=== PATIENT | male | born 1940 | race Caucasian/White ===

== ENCOUNTER → 2016-07-17 | Outpatient (REF) | payer MEDICARE, OTHER ==
[~2016-07-17] MED LIST: ACET0.052 PO; ASPI81TA85 PO; ATOR1TAB21 PO; METO50TA2 PO; MULT1TAB8 PO; NITR4TASL SL; RAMI5CA PO; VITA10006 PO
[2016-07-17 11:47] LABS: CALCIUM LEVEL 8.8 MG/DL (8.8-10.2); CREATININE FOR GFR 2.61 MG/DL (0.70-1.30); GLOMERULAR FILTRATION RATE 25.6 (>42); MAGNESIUM LEVEL 1.8 MG/DL (1.8-2.4); POTASSIUM SERUM 5.1 MEQ/L (3.5-5.1)
== END ==
LOC: M SFHCPLAZ 08:55
PROVIDERS: ATTEND Internal Medicine
DX: N18.4 Chronic kidney disease, stage 4 (severe) (principal)

== ENCOUNTER → 2016-12-28 | Outpatient (REF) | payer MEDICARE, OTHER ==
[2016-12-28 11:45] LABS: MEAN CORPUSCULAR HEMOGLOBIN 32.7 pg (27.0-33.0); MEAN CORPUSCULAR HGB CONC 33.2 g/dl (32.0-36.5); MEAN CORPUSCULAR VOLUME 98.4 fl (80.0-96.0); RED CELL DISTRIBUTION WIDTH 13.1 % (11.5-14.5); WHITE BLOOD COUNT 3.6 K/mm3 (4.0-10.0)
[2016-12-28 12:07] LABS: ALBUMIN 3.6 GM/DL (3.2-5.2); ALBUMIN/GLOBULIN RATIO 1.33 (1.00-1.93); BILIRUBIN,TOTAL 0.5 MG/DL (0.2-1.0); CALCIUM LEVEL 8.6 MG/DL (8.8-10.2); CREATININE FOR GFR 2.7 MG/DL (0.70-1.30); GLOMERULAR FILTRATION RATE 24.6 (>42); POTASSIUM SERUM 4.6 MEQ/L (3.5-5.1); TOTAL PROTEIN 6.3 GM/DL (6.4-8.2)
== END ==
LOC: M SFHCPLAZ 08:44
PROVIDERS: ATTEND Internal Medicine
DX: N18.4 Chronic kidney disease, stage 4 (severe) (principal); D63.1 Anemia in chronic kidney disease; E78.00 Pure hypercholesterolemia, unspecified

== ENCOUNTER → 2017-06-02 | Outpatient (CLI) | payer MEDICARE, OTHER ==
[~2017-06-02] MED LIST changes: -METO50TA2 PO; +METO50TA7 PO
--- NOTE | 2017-06-03 05:41 | REP ---
RIGHT RIB SERIES: Four views of the right ribs are performed. I suspect nondisplaced fractures of the posterior right 9th and 10th ribs. No other definite rib abnormality is seen. An accompanying view of the chest demonstrates no acute infiltrate or pneumothorax. Heart is normal in size. There is calcification of the thoracic aorta. There are degenerative changes of the spine and shoulders. IMPRESSION: Suspect nondisplaced fractures of the right posterior 9th and 10th ribs. Signed by Derek Brewster MD 06/03/2017 08:56 A
--- NOTE | 2017-06-03 05:44 | REP ---
RIGHT KNEE SERIES: Five views of the right knee performed. There is no acute fracture or dislocation. There is mild patellofemoral compartment narrowing laterally with subchondral sclerosis and mild spurring. There is a small joint effusion. There is mild spurring of the superior pole of the patella. There is moderate lateral joint space narrowing with subchondral sclerosis and spurring. IMPRESSION: Degenerative changes and small joint effusion. No fracture or dislocation. Signed by Derek Brewster MD 06/03/2017 09:01 A
--- NOTE | 2017-06-03 05:45 | REP ---
RIGHT ANKLE SERIES: Four views of the right ankle are performed and demonstrate no fracture or dislocation. Ankle mortise is anatomic. There is lateral and medial mild degree of soft tissue swelling. IMPRESSION: No acute fracture or dislocation. Signed by Derek Brewster MD 06/03/2017 09:01 A
--- NOTE | 2017-06-03 05:46 | REP ---
RIGHT LOWER LEG, TWO VIEWS: AP and lateral views of right lower leg are performed and demonstrate no fracture, dislocation or intrinsic bone disease. IMPRESSION: No fracture or dislocation. Signed by Derek Brewster MD 06/03/2017 09:01 A
== END ==
LOC: M WUC 13:59
PROVIDERS: ATTEND Physician Assistant
DX: S20.211A Contusion of right front wall of thorax, initial encounter (principal); X58.XXXA Exposure to other specified factors, initial encounter; Y92.89 Other specified places as the place of occurrence of the external cause; Y93.89 Activity, other specified; Y99.8 Other external cause status; M25.461 Effusion, right knee

== ENCOUNTER → 2017-06-17 | Outpatient (REF) | payer MEDICARE, OTHER ==
[2017-06-17 11:41] LABS: MEAN CORPUSCULAR HGB CONC 32.3 g/dl (32.0-36.5); MEAN CORPUSCULAR VOLUME 99.2 fl (80.0-96.0); PLATELET COUNT, AUTOMATED 254 10^3/uL (150-450); RED CELL DISTRIBUTION WIDTH 13.2 % (11.5-14.5); WHITE BLOOD COUNT 5.1 10^3/uL (4.0-10.0)
[2017-06-17 12:40] LABS: ALBUMIN 3.9 GM/DL (3.2-5.2); ALBUMIN/GLOBULIN RATIO 1.3 (1.00-1.93); BILIRUBIN,TOTAL 0.6 MG/DL (0.2-1.0); CALCIUM LEVEL 9.4 MG/DL (8.8-10.2); CREATININE FOR GFR 3.21 MG/DL (0.70-1.30); GLOMERULAR FILTRATION RATE 20.1 (>42); POTASSIUM SERUM 5.1 MEQ/L (3.5-5.1); TOTAL PROTEIN 6.9 GM/DL (6.4-8.2)
== END ==
LOC: M SFHCPLAZ 10:05
PROVIDERS: ATTEND Internal Medicine
DX: N18.4 Chronic kidney disease, stage 4 (severe) (principal); D63.1 Anemia in chronic kidney disease

== ENCOUNTER → 2017-06-28 | Outpatient (CLI) | payer MEDICARE, OTHER ==
--- NOTE | 2017-06-28 12:57 | REP ---
URINARY TRACT SONOGRAPHY WITH RENAL ARTERY DOPPLER FLOW ASSESSMENT: HISTORY: Stage IV chronic kidney disease. MORPHOLOGIC FINDINGS: The urinary bladder manzo are somewhat trabeculated in appearance. There is evidence of prostate enlargement. Renal cortical echogenicity pattern is isoechoic to liver parenchyma, consistent with chronic medical renal disease. There is no evidence of hydronephrosis on either side. The right kidney measures 9.4 x 4.3 x 4.1 cm. Left renal dimensions are 10.2 x 4.4 x 5.3 cm. There is a 0.8 cm cyst in the upper pole of the left kidney and two possible left renal calculi 6 and 4 mm in the mid and lower pole, respectively. There is a 2.2 cm cyst in the lower pole of the right kidney and a possible 4 mm stone in its lower pole region. RENAL ARTERY DOPPLER FLOW ASSESSMENT: Peak systolic flow velocity in the abdominal aorta at the level of the main renal arteries is normal at 107 cm/s. Peak systolic flow velocity in the left main renal artery is 159 cm/s and that in the right 105 cm/s. Renal to aortic flow velocity ratios are therefore normal at 0.98 and 1.48, respectively on the right and left kidney. Resistive indices and acceleration times are measured in the intralobar arteries of both kidneys in the upper, mid, and lower pole, and these values are normal bilaterally. IMPRESSION: No renal artery Doppler flow assessment changes to suggest renal artery stenosis. Bilateral renal cysts. Possible nephrolithiasis. Increased renal cortical echogenicity pattern. No hydronephrosis. Signed by Arturo Hutton MD 06/28/2017 04:15 P
== END ==
LOC: M RAD 08:29
PROVIDERS: ATTEND Internal Medicine
DX: N28.1 Cyst of kidney, acquired (principal); N18.4 Chronic kidney disease, stage 4 (severe)

== ENCOUNTER 2018-03-24 16:58 | Emergency (ER) | payer MEDICARE, BC, OTHER ==
[2018-03-24] MEDS: LIDOCAINE 1% MDV 20ML VIAL SC ×2 (18:45)
[2018-03-24] MEDS: NORCO, ANEXSIA 5/325MG TABLET (HYDROcodone/ACETAMINOPHEN) PO ×2 (19:11)
== END 2018-03-24 21:08 | disposition home or self-care (01) ==
LOC: M ED 16:58
DX: S63.111A Subluxation of metacarpophalangeal joint of right thumb, initial encounter (principal); W19.XXXA Unspecified fall, initial encounter; Y92.410 Unspecified street and highway as the place of occurrence of the external cause
CPT/HCPCS: 73130

== ENCOUNTER → 2018-04-01 | Outpatient (REF) | payer MEDICARE, OTHER ==
[2018-04-01 10:20] LABS: HEMATOCRIT 32.8 % (42.0-52.0); HEMOGLOBIN 10.5 g/dl (13.5-17.5); MEAN CORPUSCULAR HEMOGLOBIN 32.4 pg (27.0-33.0); MEAN CORPUSCULAR VOLUME 101.2 fl (80.0-96.0); PLATELET COUNT, AUTOMATED 197 10^3/uL (150-450); RED BLOOD COUNT 3.24 10^6/uL (4.30-6.10); RED CELL DISTRIBUTION WIDTH 13.6 % (11.5-14.5); WHITE BLOOD COUNT 5.2 10^3/uL (4.0-10.0)
[2018-04-01 10:42] LABS: ALBUMIN 4.2 GM/DL (3.2-5.2); ALKALINE PHOSPHATASE 47 U/L (45-117); ALT/SGPT 37 U/L (12-78); ANION GAP 11 MEQ/L (8-16); AST/SGOT 26 U/L (7-37); BILIRUBIN,TOTAL 0.6 MG/DL (0.2-1.0); BLOOD UREA NITROGEN 79 MG/DL (7-18); CALCIUM LEVEL 10.4 MG/DL (8.8-10.2); CARBON DIOXIDE LEVEL 19 MEQ/L (21-32); CHLORIDE LEVEL 111 MEQ/L (98-107); CHOLESTEROL LEVEL 119 MG/DL (<200); CREATININE FOR GFR 4.19 MG/DL (0.70-1.30); GLOMERULAR FILTRATION RATE 14.8 (>42); GLUCOSE, FASTING 87 MG/DL (70-100); HDL CHOLESTEROL 70 MG/DL (>40); LDL CHOLESTEROL 41 MG/DL (<100); NON-HDL-C 49 MG/DL; POTASSIUM SERUM 5.4 MEQ/L (3.5-5.1); SODIUM LEVEL 141 MEQ/L (136-145); TRIGLYCERIDES LEVEL 39 MG/DL (<150)
[2018-04-01 10:52] LABS: PTH INTACT 49.4 PG/ML (18.5-88.0)
== END ==
LOC: M SFHCPLAZ 07:27
DX: N18.4 Chronic kidney disease, stage 4 (severe) (principal); D63.1 Anemia in chronic kidney disease; E78.00 Pure hypercholesterolemia, unspecified; H61.22 Impacted cerumen, left ear
CPT/HCPCS: 80053

== ENCOUNTER → 2018-04-28 | Outpatient (REF) | payer MEDICARE, OTHER ==
[2018-04-28 13:11] LABS: ANION GAP 7 MEQ/L (8-16); BLOOD UREA NITROGEN 58 MG/DL (7-18); CALCIUM LEVEL 10.1 MG/DL (8.8-10.2); CARBON DIOXIDE LEVEL 24 MEQ/L (21-32); CHLORIDE LEVEL 112 MEQ/L (98-107); CREATININE FOR GFR 4.22 MG/DL (0.70-1.30); GLOMERULAR FILTRATION RATE 14.7 (>42); GLUCOSE, FASTING 96 MG/DL (70-100); MAGNESIUM LEVEL 2.2 MG/DL (1.8-2.4); SODIUM LEVEL 143 MEQ/L (136-145)
== END ==
LOC: M SFHCPLAZ 08:26
DX: N18.4 Chronic kidney disease, stage 4 (severe) (principal)
CPT/HCPCS: 83735

== ENCOUNTER → 2018-05-14 | Outpatient (REF) | payer MEDICARE, OTHER ==
[2018-05-14 15:42] LABS: ANION GAP 10 MEQ/L (8-16); BLOOD UREA NITROGEN 48 MG/DL (7-18); CALCIUM LEVEL 9.7 MG/DL (8.8-10.2); CARBON DIOXIDE LEVEL 24 MEQ/L (21-32); CHLORIDE LEVEL 108 MEQ/L (98-107); CREATININE FOR GFR 3.39 MG/DL (0.70-1.30); GLOMERULAR FILTRATION RATE 18.9 (>42); GLUCOSE, FASTING 96 MG/DL (70-100); POTASSIUM SERUM 4.5 MEQ/L (3.5-5.1); SODIUM LEVEL 142 MEQ/L (136-145)
== END ==
LOC: M SFHCPLAZ 12:49
DX: N18.4 Chronic kidney disease, stage 4 (severe) (principal)
CPT/HCPCS: 80048

== ENCOUNTER → 2018-06-20 | Outpatient (REF) | payer MEDICARE, OTHER ==
[2018-06-20 18:26] LABS: ALBUMIN 4.1 GM/DL (3.2-5.2); ALBUMIN/GLOBULIN RATIO 1.41 (1.00-1.93); ALKALINE PHOSPHATASE 55 U/L (45-117); ALT/SGPT 34 U/L (12-78); ANION GAP 11 MEQ/L (8-16); AST/SGOT 31 U/L (7-37); BILIRUBIN,TOTAL 0.5 MG/DL (0.2-1.0); BLOOD UREA NITROGEN 60 MG/DL (7-18); CALCIUM LEVEL 10.5 MG/DL (8.8-10.2); CARBON DIOXIDE LEVEL 26 MEQ/L (21-32); CHLORIDE LEVEL 107 MEQ/L (98-107); CREATININE FOR GFR 4.13 MG/DL (0.70-1.30); GLUCOSE, FASTING 82 MG/DL (70-100); MAGNESIUM LEVEL 2.1 MG/DL (1.8-2.4); SODIUM LEVEL 144 MEQ/L (136-145)
[2018-06-20 18:34] LABS: PTH INTACT 60.6 PG/ML (18.5-88.0)
== END ==
LOC: M SFHCPLAZ 15:40
DX: N18.4 Chronic kidney disease, stage 4 (severe) (principal)
CPT/HCPCS: 83735

== ENCOUNTER → 2018-10-22 | Outpatient (REF) | payer MEDICARE, OTHER ==
[~2018-10-22] MED LIST changes: +RAMI1CAP24 PO; -RAMI5CA PO
[2018-10-22 12:18] LABS: HEMATOCRIT 35.1 % (42.0-52.0); HEMOGLOBIN 11.3 g/dl (13.5-17.5); MEAN CORPUSCULAR HEMOGLOBIN 32.7 pg (27.0-33.0); MEAN CORPUSCULAR HGB CONC 32.2 g/dl (32.0-36.5); MEAN CORPUSCULAR VOLUME 101.4 fl (80.0-96.0); PLATELET COUNT, AUTOMATED 167 10^3/uL (150-450); RED BLOOD COUNT 3.46 10^6/uL (4.30-6.10); WHITE BLOOD COUNT 5.8 10^3/uL (4.0-10.0)
[2018-10-22 12:51] LABS: ALBUMIN 3.9 GM/DL (3.2-5.2); BILIRUBIN,TOTAL 0.4 MG/DL (0.2-1.0); CALCIUM LEVEL 10.3 MG/DL (8.8-10.2); CHOLESTEROL RISK RATIO 2.293 (<5); CREATININE FOR GFR 4.02 MG/DL (0.70-1.30); GLOMERULAR FILTRATION RATE 15.5 (>42); MAGNESIUM LEVEL 1.8 MG/DL (1.8-2.4); POTASSIUM SERUM 4.5 MEQ/L (3.5-5.1); TOTAL PROTEIN 6.3 GM/DL (6.4-8.2)
[2018-10-22 13:02] LABS: PTH INTACT 62.4 PG/ML (18.5-88.0)
== END ==
LOC: M SFHCPLAZ 10:46
PROVIDERS: ATTEND Internal Medicine
DX: N18.4 Chronic kidney disease, stage 4 (severe) (principal); E78.00 Pure hypercholesterolemia, unspecified; D63.1 Anemia in chronic kidney disease

== ENCOUNTER → 2018-11-04 | Outpatient (CLI) | payer MEDICARE, BC, OTHER ==
--- NOTE | 2018-11-10 01:21 | HOLTMON ---
[facility] Test Date: 2018-11-04 Pat Name: JUAN SMITH Department: Room: - Gender: Packing Room Supervisor: Samantha Quintana/BHAVIN TEIXEIRA : 1940 Requested By: Tayo Lay Order Number: [id number] Reading MD: Cheko Alvarado Interpretive Statements The patient had a 48 hour Holter monitor for a complaint of "syncope". Underlying rhythm was sinus. There were two hours of artifact. Heart rate ranged between 38 and 106 beats per minute; average heart rate was 56 beats per minute. No significant pauses were recorded. There was no ventricular ectopy. 2,076 supraventricular beats recorded with 63% singlets. The longest supraventricular run was 9 beats. No diary events were recorded by patient. Lowest heart rate was at 0553, presumably during sleep. Atrial fibrillation was noted by the computer in the report, but on review of the diary the rhythm was sinus with supraventricular ectopy. There is no obvious cause for syncope shown by this study, although baseline heart rate is bradycardic and there is frequent supraventricular ectopy. If further concern exists for arrhythmia, consider an event recorder, or implantable loop recorder. Electronically Signed On 11-10-2018 1:21:23 EDT by Cheko Alvarado
== END ==
LOC: M EKG 11:24
PROVIDERS: ATTEND Internal Medicine
DX: Z87.898 Personal history of other specified conditions (principal)

== ENCOUNTER → 2019-01-29 | Outpatient (REF) | payer MEDICARE, OTHER ==
[2019-01-29 12:14] LABS: ALBUMIN 3.8 GM/DL (3.2-5.2); BILIRUBIN,TOTAL 0.4 MG/DL (0.2-1.0); CALCIUM LEVEL 11.5 MG/DL (8.8-10.2); CREATININE FOR GFR 4.53 MG/DL (0.70-1.30); GLOMERULAR FILTRATION RATE 13.5 (>42); POTASSIUM SERUM 3.9 MEQ/L (3.5-5.1); PTH INTACT 66.1 PG/ML (18.5-88.0); TOTAL PROTEIN 6.5 GM/DL (6.4-8.2)
== END ==
LOC: M SFHCPLAZ 10:50
PROVIDERS: ATTEND Internal Medicine
DX: N18.4 Chronic kidney disease, stage 4 (severe) (principal)

== ENCOUNTER → 2019-03-05 | Outpatient (REF) | payer MEDICARE, OTHER ==
[~2019-03-05] MED LIST changes: +ACET-1146 PO; -ACET0.052 PO
[2019-03-05 14:06] LABS: PERCENT SATURATION 22.7 % (19.7-50.0)
== END ==
LOC: M LAB REF 13:18
PROVIDERS: ATTEND Internal Medicine Nephrology
DX: D50.9 Iron deficiency anemia, unspecified (principal)

== ENCOUNTER → 2019-03-12 | Outpatient (CLI) | payer MEDICARE, BC, OTHER ==
[~2019-03-12] MED LIST changes: -ACET-1146 PO; +ACET0.052 PO
--- NOTE | 2019-03-12 13:58 | REP ---
Renal ultrasound: The right kidney is atrophic measuring 8.7 x 4.3 x 4.4 cm. The left kidney is normal size measuring temporal and a 5.9 x 5.4 cm. Renal cortical echogenicity is normal bilaterally. There is no hydronephrosis on the right on the left. No renal calculi are identified. There are no solid renal masses. There is a right renal lower pole Bosniak type 1, 2.2 cm cyst. There is a left renal mid pole Bosniak type 1, 0.6 cm cyst. Impression: There is a Bosniak type 1 cyst in each kidney. The right kidney is atrophic. Otherwise, negative renal ultrasound. Bladder: With color Doppler assessment. No ureteral jets are identified. However, there is no hydronephrosis. This may be from dehydration. There are only two transverse views of the bladder. The bladder wall cannot be assessed. Electronically Signed by Derek Barney MD 03/12/2019 01:50 P
== END ==
LOC: M RAD 09:48
PROVIDERS: ATTEND Internal Medicine Nephrology
DX: N18.5 Chronic kidney disease, stage 5 (principal)

== ENCOUNTER → 2019-08-25 | Outpatient (REF) | payer MEDICARE, OTHER ==
[~2019-08-25] MED LIST changes: +ACET-1146 PO; -ACET0.052 PO
== END ==
LOC: M LAB REF 13:18
PROVIDERS: ATTEND Internal Medicine Nephrology
DX: E03.9 Hypothyroidism, unspecified (principal)

== ENCOUNTER → 2019-11-18 | Outpatient (REF) | payer MEDICARE, OTHER ==
[2019-11-18 14:24] LABS: CHOLESTEROL RISK RATIO 2.114 (<5); THYROID STIMULATING HORMONE 1.66 uIU/ML (0.358-3.740)
== END ==
LOC: M PLALAB 10:30
PROVIDERS: ATTEND Internal Medicine
DX: E78.00 Pure hypercholesterolemia, unspecified (principal); R68.89 Other general symptoms and signs

== ENCOUNTER → 2020-04-06 | Outpatient (CLI) | payer MEDICARE, OTHER ==
[~2020-04-06] MED LIST changes: -ASPI81TA85 PO; +ASPI81TA86 PO
[2020-04-06 16:47] LABS: ALBUMIN 3.7 GM/DL (3.2-5.2); BILIRUBIN,TOTAL 0.4 MG/DL (0.2-1.0); CREATININE FOR GFR 3.81 MG/DL (0.70-1.30); GLOMERULAR FILTRATION RATE 16.4 (>42); POTASSIUM SERUM 5.1 MEQ/L (3.5-5.1); TOTAL PROTEIN 6.3 GM/DL (6.4-8.2)
== END ==
LOC: M PLALAB 14:09
PROVIDERS: ATTEND Internal Medicine
DX: N18.4 Chronic kidney disease, stage 4 (severe) (principal); I12.9 Hypertensive chronic kidney disease with stage 1 through stage 4 chronic kidney disease, or unspecified chronic kidney disease; E78.00 Pure hypercholesterolemia, unspecified; I25.10 Atherosclerotic heart disease of native coronary artery without angina pectoris

== ENCOUNTER → 2020-06-01 | Outpatient (CLI) | payer MEDICARE, BC, OTHER ==
--- NOTE | 2020-06-01 13:09 | REP ---
INDICATION: EDEMA, THROMBOSIS COMPARISON: None. TECHNIQUE: Real time compression and duplex Doppler interrogation of the left lower extremity deep venous system is performed. FINDINGS: The left common femoral, superficial femoral and popliteal veins are fully compressible with transducer pressure and demonstrate normal spontaneous and phasic flow, without evidence of deep venous thrombosis. Two complex popliteal cysts are noted. These measure 5.1 x 1.6 x 2.8 cm and 8.4 X 0.7 x 1.6 cm. IMPRESSION: No evidence of deep venous thrombosis of the left lower extremity femoral popliteal venous system. Two complex popliteal cysts are noted. These measure 5.1 x 1.6 x 2.8 cm and 8.4 X 0.7 x 1.6 cm. <Electronically signed by Derek Brewster > 06/01/20 [id number]
== END ==
LOC: M RAD 12:16
PROVIDERS: ATTEND Internal Medicine Nephrology
DX: M71.22 Synovial cyst of popliteal space [Baker], left knee (principal)

== ENCOUNTER → 2020-10-03 | Outpatient (REF) | payer MEDICARE, OTHER ==
[2020-10-03 18:34] LABS: ALBUMIN 3.7 GM/DL (3.2-5.2); BILIRUBIN,TOTAL 0.4 MG/DL (0.2-1.0); CHOLESTEROL RISK RATIO 1.95 (<5); CREATININE FOR GFR 4.27 MG/DL (0.70-1.30); GLOMERULAR FILTRATION RATE 14.4 (>42); POTASSIUM SERUM 4.9 MEQ/L (3.5-5.1); TOTAL PROTEIN 6.3 GM/DL (6.4-8.2)
== END ==
LOC: M SFHCPLAZ 14:18
PROVIDERS: ATTEND Internal Medicine
DX: N18.4 Chronic kidney disease, stage 4 (severe) (principal); E78.00 Pure hypercholesterolemia, unspecified

== ENCOUNTER → 2020-12-26 | Outpatient (REF) | payer MEDICARE, OTHER ==
[2020-12-26 17:53] LABS: PERCENT SATURATION 22.6 % (19.7-50.0)
== END ==
LOC: M LAB REF 17:00
PROVIDERS: ATTEND Internal Medicine Nephrology
DX: D50.9 Iron deficiency anemia, unspecified (principal)

== ENCOUNTER 2021-07-31 10:55 | Inpatient (IN) | payer MEDICARE, BC, OTHER ==
[~2021-07-31] VITALS: Ht 185.4 cm; Wt 70.5 kg
[2021-07-31] VITALS (7 sets, daily range): BP systolic 83–130; BP diastolic 54–99
[2021-07-31] MEDS ORDERED: NS 1,000 ML IV ONE ×3 (11:05→11:15)
[2021-07-31] MEDS ORDERED: LIDOCAINE 2% 5ML JELLY UROJET TOP ONE (11:05)
[2021-07-31] MEDS ORDERED: PIPERACILLIN/TAZOBACTAM SOD 4.5 GM in D5W MINI-BAG PLUS 50 ML IV ONE (11:15)
[2021-07-31] MEDS ORDERED: CALCIUM GLUCONATE 1,000 MG in D5W MINI-BAG PLUS 100 ML IV ONE ×3 (11:20→18:00)
[2021-07-31] MEDS ORDERED: HumuLIN R (REGULAR) INSULIN (NovoLIN R) **100U/ML** PER UNIT IV ONE ×2 (11:20→14:00)
[2021-07-31] MEDS ORDERED: DEXTROSE 50% 50 ML SYRINGE IV STA ×2 (11:20→13:57)
[2021-07-31] MEDS ORDERED: SODIUM BICARBONATE 8.4% INJ 50 ML SYRINGE IV STA ×2 (11:21→17:51)
[2021-07-31] MEDS ORDERED: ALBUTEROL SULFATE 2.5 MG/0.5 ML INH NEB SOLN INH ONE (11:25)
[2021-07-31] MEDS ORDERED: IPRATROPIUM 0.5MG/ALBUTEROL 2.5MG INH SOL UD 3ML (DUONEB) NEB ONE (11:25)
[2021-07-31] MEDS ORDERED: SOD POLYSTYRENE SULFONATE SUSP 15 GM/60 ML UD PO ONE (11:25)
[2021-07-31 11:35] LABS: BASO % 0.1 % (0.0-1.0); HEMATOCRIT 30.9 % (42.0-52.0); HEMOGLOBIN 9.6 g/dl (13.5-17.5); LYMPH # 0.3 10^3/uL (1.5-5.0); LYMPH % 1.9 % (24.0-44.0); MEAN CORPUSCULAR HEMOGLOBIN 31.7 pg (27.0-33.0); MEAN CORPUSCULAR HGB CONC 31.1 g/dl (32.0-36.5); MONO # 0.5 10^3/uL (0.0-0.8); NEUTROPHILS # 12.6 10^3/uL (1.5-8.5); NEUTROPHILS % 93.5 % (36.0-66.0); PLATELET COUNT, AUTOMATED 114 10^3/uL (150-450); RED BLOOD COUNT 3.03 10^6/uL (4.30-6.10); WHITE BLOOD COUNT 13.5 10^3/uL (4.0-10.0)
[2021-07-31 11:45] LABS: INR 1.23; PROTHROMBIN TIME 15.9 SECONDS (12.7-14.5)
[2021-07-31 11:46] LABS: PARTIAL THROMBOPLASTIN TIME 37.4 SECONDS (25.9-37.0)
[2021-07-31 11:57] LABS: C REACTIVE PROTEIN QUANTITATIV 2.42 MG/DL (0.00-0.30)
[2021-07-31 12:22] LABS: CK-MB VALUE MASS 174.9 NG/ML (<3.6); MB/CK RELATIVE INDEX 4.08 (< OR =4)
[2021-07-31 12:35] LABS: AMPHETAMINES LEVEL URINE NEGATIVE (NEGATIVE); BARBITURATES URINE NEGATIVE (NEGATIVE); BENZODIAZEPINES URINE NEGATIVE (NEGATIVE); CANNABINOIDS URINE NEGATIVE (NEGATIVE); COCAINE METABOLITE URINE NEGATIVE (NEGATIVE); METHADONE URINE NEGATIVE (NEGATIVE); OPIATES URINE NEGATIVE (NEGATIVE); PHENCYCLIDINE URINE NEGATIVE (NEGATIVE)
[2021-07-31 12:56] LABS: ACETAMINOPHEN LEVEL < 2.0 UG/ML (10.0-30.0); ALBUMIN 3.4 GM/DL (3.2-5.2); ALT/SGPT 278 U/L (12-78); BILIRUBIN,DIRECT 0.1 MG/DL (0.0-0.2); BILIRUBIN,TOTAL 0.3 MG/DL (0.2-1.0); BLOOD UREA NITROGEN 162 MG/DL (7-18); CALCIUM LEVEL 9.3 MG/DL (8.8-10.2); CARBON DIOXIDE LEVEL 8 MEQ/L (21-32); CHLORIDE LEVEL 125 MEQ/L (98-107); CREATININE FOR GFR 7.74 MG/DL (0.70-1.30); ETHYL ALCOHOL (ETHANOL) 0.003 % (0.000-0.010); GLOMERULAR FILTRATION RATE 7.2 (>35); GLUCOSE, FASTING 98 MG/DL (70-100); POTASSIUM SERUM 8.3 MEQ/L (3.5-5.1); SALICYLATE LEVEL < 1.7 MG/DL (5.0-30.0); SODIUM LEVEL 144 MEQ/L (136-145); TOTAL PROTEIN 6.5 GM/DL (6.4-8.2)
[2021-07-31] MEDS ORDERED: FURO20TA2 PO (13:04)
[2021-07-31] MEDS ORDERED: EPOE2000 SC (13:04)
[2021-07-31] MEDS ORDERED: ASPI81TA26 PO (13:04)
[2021-07-31] MEDS ORDERED: CINA30TA5 PO (13:04)
[2021-07-31] MEDS ORDERED: SODI650T PO (13:04)
[2021-07-31] MEDS ORDERED: HOME MED LIST COMPLETE! XX SCH (13:05)
[2021-07-31] MEDS ORDERED: COMMENTS (13:05)
[2021-07-31] MEDS ORDERED: SODIUM BICARBONATE 150 MEQ in D5W 1,000 ML IV SCH (13:10)
[2021-07-31 13:18] LABS: CALCIUM LEVEL 8.4 MG/DL (8.8-10.2); CREATININE FOR GFR 6.94 MG/DL (0.70-1.30); GLOMERULAR FILTRATION RATE 8.2 (>35); POTASSIUM SERUM 6.9 MEQ/L (3.5-5.1)
[2021-07-31 15:52] LABS: CALCIUM LEVEL 8.7 MG/DL (8.8-10.2); CREATININE FOR GFR 7.19 MG/DL (0.70-1.30); GLOMERULAR FILTRATION RATE 7.9 (>35); POTASSIUM SERUM 7.1 MEQ/L (3.5-5.1)
[2021-07-31] MEDS ORDERED: GLUCOSE 4GM CHEW TABLET PO PRN (16:25)
[2021-07-31] MEDS ORDERED: DEXTROSE 50% 50 ML SYRINGE IV PRN (16:25)
[2021-07-31] MEDS ORDERED: GLUCAGON INJ 1MG VIAL SC PRN (16:25)
[2021-07-31] MEDS: PIPERACILLIN/TAZOBACTAM SOD 2.25 GM in D5W MINI-BAG PLUS 50 ML IV SCH (18:21)
[2021-07-31 18:29] LABS: VENOUS BASE EXCESS -21.8 (-2.0-2.0); VENOUS HCO3 6.9 MEQ/L (23.0-27.0); VENOUS O2 SATURATION 97.9 % (60.0-80.0); VENOUS PARTIAL PRESSURE CO2 25.3 mmHg (38.0-50.0); VENOUS PARTIAL PRESSURE O2 132.5 mmHg (30.0-50.0); VENOUS PH 7.055 UNITS (7.330-7.430); VENOUS STANDARD HCO3 8.1 MEQ/L; VENOUS TOTAL CO2 7.7 MEQ/L (24.0-28.0)
[2021-07-31 18:34] LABS: HEMATOCRIT 25.2 % (42.0-52.0); HEMOGLOBIN 8.1 g/dl (13.5-17.5); MEAN CORPUSCULAR HEMOGLOBIN 32.3 pg (27.0-33.0); MEAN CORPUSCULAR HGB CONC 32.1 g/dl (32.0-36.5); MEAN CORPUSCULAR VOLUME 100.4 fl (80.0-96.0); RED BLOOD COUNT 2.51 10^6/uL (4.30-6.10); WHITE BLOOD COUNT 12.5 10^3/uL (4.0-10.0)
[2021-07-31 18:43] LABS: INR 1.24
[2021-07-31 18:44] LABS: PARTIAL THROMBOPLASTIN TIME 39.6 SECONDS (25.9-37.0)
[2021-07-31 18:57] LABS: PLATELET COUNT, AUTOMATED 94 10^3/uL (150-450)
[2021-07-31 19:12] LABS: CALCIUM LEVEL 8.8 MG/DL (8.8-10.2); CREATININE FOR GFR 7.27 MG/DL (0.70-1.30); GLOMERULAR FILTRATION RATE 7.8 (>35); MAGNESIUM LEVEL 2.3 MG/DL (1.8-2.4); PHOSPHORUS LEVEL 6.1 MG/DL (2.5-4.9)
[2021-08-01] VITALS (33 sets, daily range): BP systolic 134–170; BP diastolic 62–132
[2021-08-01] MEDS: PIPERACILLIN/TAZOBACTAM SOD 2.25 GM in D5W MINI-BAG PLUS 50 ML IV SCH ×2 (02:09→10:21)
[2021-08-01 06:11] LABS: BASO % 0.1 % (0.0-1.0); EOS % 0.1 % (0.0-3.0); HEMATOCRIT 23.3 % (42.0-52.0); HEMOGLOBIN 7.9 g/dl (13.5-17.5); LYMPH # 0.6 10^3/uL (1.5-5.0); LYMPH % 5.3 % (24.0-44.0); MEAN CORPUSCULAR HEMOGLOBIN 32.2 pg (27.0-33.0); MEAN CORPUSCULAR HGB CONC 33.9 g/dl (32.0-36.5); MEAN CORPUSCULAR VOLUME 95.1 fl (80.0-96.0); MONO # 0.6 10^3/uL (0.0-0.8); MONO % 4.9 % (2.0-8.0); NEUTROPHILS # 10.2 10^3/uL (1.5-8.5); RED BLOOD COUNT 2.45 10^6/uL (4.30-6.10); WHITE BLOOD COUNT 11.5 10^3/uL (4.0-10.0)
[2021-08-01 06:12] LABS: PLATELET COUNT, AUTOMATED 98 10^3/uL (150-450)
[2021-08-01 06:59] LABS: CALCIUM LEVEL 9.2 MG/DL (8.8-10.2); CREATININE FOR GFR 4.76 MG/DL (0.70-1.30); GLOMERULAR FILTRATION RATE 12.6 (>35); MAGNESIUM LEVEL 2.1 MG/DL (1.8-2.4); POTASSIUM SERUM 5.3 MEQ/L (3.5-5.1)
[2021-08-01] MEDS ORDERED: SODIUM CHLORIDE 0.9% INJ 10 ML SYR IV PRN (10:10)
[2021-08-01] MEDS: D5W/0.45% SODIUM CHLORIDE 1,000 ML IV SCH (10:21)
[2021-08-01 11:15] LABS: ABG BASE EXCESS -5.9 (-2.0-2.0); ABG HCO3 16.8 MEQ/L (22.0-26.0); ABG O2 SATURATION 97.8 % (95.0-99.0); ABG PARTIAL PRESSURE CO2 23.7 mmHg (35.0-45.0); ABG PARTIAL PRESSURE O2 110.2 mmHg (75.0-100.0); ABG STANDARD HCO3 19.6 MEQ/L (22.0-26.0); ABG TOTAL CO2 17.5 MEQ/L (23.0-31.0); ABG pH (ARTERIAL) 7.468 UNITS (7.350-7.450)
[2021-08-01 14:00] LABS: HEMOGLOBIN 7.8 g/dl (13.5-17.5); MEAN CORPUSCULAR HEMOGLOBIN 32.2 pg (27.0-33.0); MEAN CORPUSCULAR HGB CONC 33.9 g/dl (32.0-36.5); RED BLOOD COUNT 2.42 10^6/uL (4.30-6.10); WHITE BLOOD COUNT 9.6 10^3/uL (4.0-10.0)
[2021-08-01 14:09] LABS: INR 1.13; PROTHROMBIN TIME 14.9 SECONDS (12.7-14.5)
[2021-08-01 14:10] LABS: PARTIAL THROMBOPLASTIN TIME 40.2 SECONDS (25.9-37.0); PLATELET COUNT, AUTOMATED 92 10^3/uL (150-450)
[2021-08-01] MEDS: PIPERACILLIN/TAZOBACTAM SOD 4.5 GM in D5W MINI-BAG PLUS 50 ML IV SCH ×2 (14:15→22:36)
[2021-08-01 14:23] LABS: ALBUMIN 2.7 GM/DL (3.2-5.2); CALCIUM LEVEL 9.3 MG/DL (8.8-10.2); CREATININE FOR GFR 3.53 MG/DL (0.70-1.30); GLOMERULAR FILTRATION RATE 17.9 (>35); PHOSPHORUS LEVEL 3.6 MG/DL (2.5-4.9); POTASSIUM SERUM 4.7 MEQ/L (3.5-5.1)
[2021-08-01] MEDS ORDERED: ASPIRIN 81 MG CHEW TABLET PO STA (23:49)
[2021-08-02] VITALS (24 sets, daily range): BP systolic 132–172; BP diastolic 63–93
[2021-08-02 00:55] LABS: CK-MB VALUE MASS 63.5 NG/ML (<3.6); MB/CK RELATIVE INDEX 1.94 (< OR =4)
[2021-08-02] MEDS: ATORVASTATIN 20 MG TAB PO SCH ×2 (01:49→09:11)
[2021-08-02] MEDS: D5W/0.45% SODIUM CHLORIDE 1,000 ML IV SCH ×2 (01:50→18:46)
[2021-08-02] MEDS: METOPROLOL TART 25 MG TABLET PO SCH ×2 (01:50→09:00)
[2021-08-02 05:38] LABS: BASO % 0.1 % (0.0-1.0); EOS % 0.4 % (0.0-3.0); HEMATOCRIT 23.9 % (42.0-52.0); LYMPH # 0.7 10^3/uL (1.5-5.0); LYMPH % 8.9 % (24.0-44.0); MEAN CORPUSCULAR HEMOGLOBIN 32.5 pg (27.0-33.0); MEAN CORPUSCULAR HGB CONC 33.5 g/dl (32.0-36.5); MEAN CORPUSCULAR VOLUME 97.2 fl (80.0-96.0); MONO # 0.6 10^3/uL (0.0-0.8); MONO % 7.8 % (2.0-8.0); NEUTROPHILS # 6.2 10^3/uL (1.5-8.5); NEUTROPHILS % 82.3 % (36.0-66.0); RED BLOOD COUNT 2.46 10^6/uL (4.30-6.10); WHITE BLOOD COUNT 7.6 10^3/uL (4.0-10.0)
[2021-08-02 05:43] LABS: PLATELET COUNT, AUTOMATED 97 10^3/uL (150-450)
[2021-08-02 06:02] LABS: CALCIUM LEVEL 8.7 MG/DL (8.8-10.2); CREATININE FOR GFR 4.42 MG/DL (0.70-1.30); GLOMERULAR FILTRATION RATE 13.8 (>35)
[2021-08-02 06:20] LABS: CK-MB VALUE MASS 51.3 NG/ML (<3.6); MB/CK RELATIVE INDEX 1.87 (< OR =4)
[2021-08-02] MEDS ORDERED: SODIUM CHLORIDE 0.9% 1000ML IV PRN (07:05)
[2021-08-02] MEDS ORDERED: LIDOCAINE 1% MDV 20ML VIAL As Ordered ONE (07:15)
[2021-08-02] MEDS: PIPERACILLIN/TAZOBACTAM SOD 4.5 GM in D5W MINI-BAG PLUS 50 ML IV SCH ×3 (07:41→22:45)
[2021-08-02] MEDS ORDERED: METOPROLOL TART 25 MG TABLET PO SCH (09:00)
[2021-08-02] MEDS ORDERED: ATORVASTATIN 20 MG TAB PO SCH (09:00)
[2021-08-02] MEDS: ASPIRIN 81MG ENTERIC TABLET PO SCH (09:11)
[2021-08-02 13:07] LABS: ABG HCO3 19.1 MEQ/L (22.0-26.0); ABG PARTIAL PRESSURE CO2 31.1 mmHg (35.0-45.0); ABG PARTIAL PRESSURE O2 97.3 mmHg (75.0-100.0); ABG STANDARD HCO3 20.3 MEQ/L (22.0-26.0); ABG pH (ARTERIAL) 7.405 UNITS (7.350-7.450)
[2021-08-02 13:21] LABS: EOS # 0.1 10^3/uL (0.0-0.5); EOS % 0.8 % (0.0-3.0); HEMATOCRIT 24.1 % (42.0-52.0); HEMOGLOBIN 7.8 g/dl (13.5-17.5); LYMPH # 0.6 10^3/uL (1.5-5.0); LYMPH % 8.8 % (24.0-44.0); MEAN CORPUSCULAR HEMOGLOBIN 31.8 pg (27.0-33.0); MEAN CORPUSCULAR HGB CONC 32.4 g/dl (32.0-36.5); MEAN CORPUSCULAR VOLUME 98.4 fl (80.0-96.0); MONO # 0.6 10^3/uL (0.0-0.8); MONO % 8.8 % (2.0-8.0); NEUTROPHILS # 5.8 10^3/uL (1.5-8.5); NEUTROPHILS % 81.3 % (36.0-66.0); RED BLOOD COUNT 2.45 10^6/uL (4.30-6.10); WHITE BLOOD COUNT 7.1 10^3/uL (4.0-10.0)
[2021-08-02 13:28] LABS: PLATELET COUNT, AUTOMATED 89 10^3/uL (150-450)
[2021-08-02 13:55] LABS: MB/CK RELATIVE INDEX 2.05 (< OR =4)
[2021-08-02 14:26] LABS: ALBUMIN 2.3 GM/DL (3.2-5.2); BILIRUBIN,TOTAL 0.6 MG/DL (0.2-1.0); CALCIUM LEVEL 8.6 MG/DL (8.8-10.2); CREATININE FOR GFR 4.6 MG/DL (0.70-1.30); GLOMERULAR FILTRATION RATE 13.2 (>35); POTASSIUM SERUM 4.9 MEQ/L (3.5-5.1); TOTAL PROTEIN 4.9 GM/DL (6.4-8.2)
[2021-08-03] VITALS (28 sets, daily range): BP systolic 110–167; BP diastolic 56–80
[2021-08-03] MEDS: PIPERACILLIN/TAZOBACTAM SOD 4.5 GM in D5W MINI-BAG PLUS 50 ML IV SCH ×3 (06:21→18:39)
[2021-08-03] MEDS ORDERED: SODIUM CHLORIDE 0.9% 1000ML IV PRN (07:55)
[2021-08-03 08:11] LABS: BASO % 0.2 % (0.0-1.0); EOS # 0.1 10^3/uL (0.0-0.5); EOS % 2.2 % (0.0-3.0); HEMATOCRIT 23.8 % (42.0-52.0); HEMOGLOBIN 7.6 g/dl (13.5-17.5); LYMPH # 0.8 10^3/uL (1.5-5.0); LYMPH % 15.4 % (24.0-44.0); MEAN CORPUSCULAR HEMOGLOBIN 31.5 pg (27.0-33.0); MEAN CORPUSCULAR HGB CONC 31.9 g/dl (32.0-36.5); MEAN CORPUSCULAR VOLUME 98.8 fl (80.0-96.0); MONO # 0.6 10^3/uL (0.0-0.8); NEUTROPHILS # 3.8 10^3/uL (1.5-8.5); NEUTROPHILS % 70.8 % (36.0-66.0); RED BLOOD COUNT 2.41 10^6/uL (4.30-6.10); WHITE BLOOD COUNT 5.4 10^3/uL (4.0-10.0)
[2021-08-03 08:13] LABS: PLATELET COUNT, AUTOMATED 90 10^3/uL (150-450)
[2021-08-03 08:30] LABS: CALCIUM LEVEL 8.1 MG/DL (8.8-10.2); CREATININE FOR GFR 5.19 MG/DL (0.70-1.30); GLOMERULAR FILTRATION RATE 11.4 (>35); POTASSIUM SERUM 4.9 MEQ/L (3.5-5.1)
[2021-08-03] MEDS: ATORVASTATIN 20 MG TAB PO SCH (09:23)
[2021-08-03] MEDS: ASPIRIN 81MG ENTERIC TABLET PO SCH (09:23)
[2021-08-03] MEDS: D5W 1,000 ML IV SCH (09:26)
[2021-08-03 13:57] LABS: HEPATITIS B CORE ANTIBODY IGM NEGATIVE (NEGATIVE); HEPATITIS B SURFACE ANTIBODY NEGATIVE (POSITIVE); HEPATITIS B SURFACE ANTIGEN NEGATIVE (NEGATIVE); HEPATITIS C VIRUS ABY INDEX < 0.0 INDEX (<0.8)
[2021-08-03 18:37] LABS: BASO % 0.2 % (0.0-1.0); EOS # 0.1 10^3/uL (0.0-0.5); EOS % 2.4 % (0.0-3.0); HEMATOCRIT 29.8 % (42.0-52.0); HEMOGLOBIN 9.9 g/dl (13.5-17.5); LYMPH % 16.6 % (24.0-44.0); MEAN CORPUSCULAR HGB CONC 33.2 g/dl (32.0-36.5); MEAN CORPUSCULAR VOLUME 96.4 fl (80.0-96.0); MONO # 0.5 10^3/uL (0.0-0.8); MONO % 9.2 % (2.0-8.0); NEUTROPHILS # 4.1 10^3/uL (1.5-8.5); NEUTROPHILS % 70.9 % (36.0-66.0); RED BLOOD COUNT 3.09 10^6/uL (4.30-6.10); WHITE BLOOD COUNT 5.8 10^3/uL (4.0-10.0)
[2021-08-03 18:42] LABS: PLATELET COUNT, AUTOMATED 85 10^3/uL (150-450)
[2021-08-04] VITALS (13 sets, daily range): BP systolic 109–142; BP diastolic 57–95
[2021-08-04] MEDS: D5W 1,000 ML IV SCH (02:00)
[2021-08-04] MEDS: PIPERACILLIN/TAZOBACTAM SOD 4.5 GM in D5W MINI-BAG PLUS 50 ML IV SCH ×2 (05:04→18:04)
[2021-08-04 05:47] LABS: BASO % 0.2 % (0.0-1.0); EOS # 0.2 10^3/uL (0.0-0.5); EOS % 3.2 % (0.0-3.0); HEMATOCRIT 28.4 % (42.0-52.0); HEMOGLOBIN 9.2 g/dl (13.5-17.5); LYMPH # 0.8 10^3/uL (1.5-5.0); LYMPH % 13.6 % (24.0-44.0); MEAN CORPUSCULAR HEMOGLOBIN 31.5 pg (27.0-33.0); MEAN CORPUSCULAR HGB CONC 32.4 g/dl (32.0-36.5); MEAN CORPUSCULAR VOLUME 97.3 fl (80.0-96.0); MONO # 0.6 10^3/uL (0.0-0.8); MONO % 10.2 % (2.0-8.0); NEUTROPHILS # 4.5 10^3/uL (1.5-8.5); NEUTROPHILS % 72.3 % (36.0-66.0); RED BLOOD COUNT 2.92 10^6/uL (4.30-6.10); WHITE BLOOD COUNT 6.2 10^3/uL (4.0-10.0)
[2021-08-04 05:52] LABS: PLATELET COUNT, AUTOMATED 85 10^3/uL (150-450)
[2021-08-04 06:07] LABS: CREATININE FOR GFR 3.71 MG/DL (0.70-1.30); GLOMERULAR FILTRATION RATE 16.9 (>35)
[2021-08-04] MEDS: ATORVASTATIN 20 MG TAB PO SCH (09:05)
[2021-08-04] MEDS: ASPIRIN 81MG ENTERIC TABLET PO SCH (09:05)
[2021-08-05 00:06] VITALS: BP 136/78
[2021-08-05 04:00] VITALS: BP 155/74
[2021-08-05 05:45] LABS: BASO % 0.1 % (0.0-1.0); EOS # 0.2 10^3/uL (0.0-0.5); EOS % 2.8 % (0.0-3.0); HEMATOCRIT 30.8 % (42.0-52.0); LYMPH % 12.4 % (24.0-44.0); MEAN CORPUSCULAR HEMOGLOBIN 31.6 pg (27.0-33.0); MEAN CORPUSCULAR HGB CONC 32.5 g/dl (32.0-36.5); MEAN CORPUSCULAR VOLUME 97.5 fl (80.0-96.0); MONO # 0.6 10^3/uL (0.0-0.8); MONO % 7.9 % (2.0-8.0); RED BLOOD COUNT 3.16 10^6/uL (4.30-6.10); WHITE BLOOD COUNT 7.9 10^3/uL (4.0-10.0)
[2021-08-05 05:46] LABS: PLATELET COUNT, AUTOMATED 97 10^3/uL (150-450)
[2021-08-05] MEDS: PIPERACILLIN/TAZOBACTAM SOD 4.5 GM in D5W MINI-BAG PLUS 50 ML IV SCH ×2 (05:55→18:07)
[2021-08-05 06:03] LABS: CALCIUM LEVEL 8.4 MG/DL (8.8-10.2); CREATININE FOR GFR 4.72 MG/DL (0.70-1.30); GLOMERULAR FILTRATION RATE 12.8 (>35); POTASSIUM SERUM 4.1 MEQ/L (3.5-5.1)
[2021-08-05 07:12] VITALS: BP 133/71
[2021-08-05] MEDS ORDERED: SODIUM CHLORIDE 0.9% 1000ML IV PRN (08:05)
[2021-08-05] MEDS ORDERED: LIDOCAINE 1% SDV 5ML VIAL SC PRN (08:05)
[2021-08-05] MEDS: ASPIRIN 81MG ENTERIC TABLET PO SCH (08:15)
[2021-08-05] MEDS: ATORVASTATIN 20 MG TAB PO SCH (08:15)
[2021-08-05 12:43] VITALS: BP 115/62
[2021-08-05 16:00] VITALS: BP 118/64
[2021-08-05 20:00] VITALS: BP 123/59
[2021-08-06] VITALS: BP 121/65
[2021-08-06 04:00] VITALS: BP 109/58
[2021-08-06] MEDS: PIPERACILLIN/TAZOBACTAM SOD 4.5 GM in D5W MINI-BAG PLUS 50 ML IV SCH (06:22)
[2021-08-06 07:19] LABS: BASO % 0.2 % (0.0-1.0); EOS # 0.3 10^3/uL (0.0-0.5); EOS % 3.1 % (0.0-3.0); HEMATOCRIT 27.3 % (42.0-52.0); HEMOGLOBIN 8.9 g/dl (13.5-17.5); LYMPH # 1.1 10^3/uL (1.5-5.0); LYMPH % 12.8 % (24.0-44.0); MEAN CORPUSCULAR HGB CONC 32.6 g/dl (32.0-36.5); MEAN CORPUSCULAR VOLUME 98.2 fl (80.0-96.0); MONO # 0.6 10^3/uL (0.0-0.8); NEUTROPHILS # 6.7 10^3/uL (1.5-8.5); NEUTROPHILS % 76.2 % (36.0-66.0); RED BLOOD COUNT 2.78 10^6/uL (4.30-6.10); WHITE BLOOD COUNT 8.8 10^3/uL (4.0-10.0)
[2021-08-06 07:20] LABS: PLATELET COUNT, AUTOMATED 97 10^3/uL (150-450)
[2021-08-06 07:38] LABS: CALCIUM LEVEL 8.7 MG/DL (8.8-10.2); CREATININE FOR GFR 4.27 MG/DL (0.70-1.30); GLOMERULAR FILTRATION RATE 14.3 (>35); PHOSPHORUS LEVEL 3.4 MG/DL (2.5-4.9)
[2021-08-06 08:00] VITALS: BP 115/58
[2021-08-06] MEDS: ATORVASTATIN 20 MG TAB PO SCH (09:16)
[2021-08-06] MEDS: ASPIRIN 81MG ENTERIC TABLET PO SCH (09:16)
[2021-08-06 12:00] VITALS: BP 116/62
[2021-08-06 16:00] VITALS: BP 113/64
[2021-08-06 19:44] VITALS: BP 111/53
[2021-08-07] VITALS (7 sets, daily range): BP systolic 110–145; BP diastolic 58–64
[2021-08-07 06:13] LABS: BASO % 0.5 % (0.0-1.0); EOS # 0.3 10^3/uL (0.0-0.5); EOS % 3.8 % (0.0-3.0); HEMATOCRIT 27.2 % (42.0-52.0); HEMOGLOBIN 8.6 g/dl (13.5-17.5); LYMPH # 1.1 10^3/uL (1.5-5.0); LYMPH % 12.3 % (24.0-44.0); MEAN CORPUSCULAR HGB CONC 31.6 g/dl (32.0-36.5); MEAN CORPUSCULAR VOLUME 101.1 fl (80.0-96.0); MONO # 0.5 10^3/uL (0.0-0.8); MONO % 5.9 % (2.0-8.0); NEUTROPHILS # 6.8 10^3/uL (1.5-8.5); NEUTROPHILS % 76.8 % (36.0-66.0); PLATELET COUNT, AUTOMATED 115 10^3/uL (150-450); RED BLOOD COUNT 2.69 10^6/uL (4.30-6.10); WHITE BLOOD COUNT 8.9 10^3/uL (4.0-10.0)
[2021-08-07 06:41] LABS: BILIRUBIN,TOTAL 0.4 MG/DL (0.2-1.0); CALCIUM LEVEL 8.5 MG/DL (8.8-10.2); CREATININE FOR GFR 5.45 MG/DL (0.70-1.30); GLOMERULAR FILTRATION RATE 10.8 (>35); MAGNESIUM LEVEL 2.1 MG/DL (1.8-2.4); TOTAL PROTEIN 4.9 GM/DL (6.4-8.2)
[2021-08-07] MEDS ORDERED: ceFAZolin SOD 2 GM in IV 1 EA IV ONE (07:30)
[2021-08-07] MEDS ORDERED: ceFAZolin 2 GM/D5W 50 ML IV BAG (J0690 PER 500MG) As Ordered ONE (07:33)
[2021-08-07] MEDS ORDERED: diphenhydrAMINE 50MG/ML VIAL (J1200) As Ordered ONE (07:35)
[2021-08-07] MEDS ORDERED: fentaNYL 100 MCG/2 ML INJECTION As Ordered ONE (07:35)
[2021-08-07] MEDS ORDERED: MIDAZOLAM INJ 2MG/2ML VIAL (J2250 PER 1MG) As Ordered ONE (07:35)
[2021-08-07] MEDS ORDERED: LIDOCAINE 1% MDV 20ML VIAL As Ordered ONE (07:36)
[2021-08-07] MEDS: ASPIRIN 81MG ENTERIC TABLET PO SCH (08:44)
[2021-08-07] MEDS: ATORVASTATIN 20 MG TAB PO SCH (08:44)
[2021-08-07 08:49] LABS: PERCENT SATURATION 17.1 % (19.7-50.0)
[2021-08-07 10:47] LABS: FOLATE 11.3 NG/ML (>5.4)
[2021-08-08] VITALS: BP 125/56
[2021-08-08 04:00] VITALS: BP 136/62
[2021-08-08 05:28] LABS: BASO % 0.3 % (0.0-1.0); EOS # 0.4 10^3/uL (0.0-0.5); EOS % 5.1 % (0.0-3.0); HEMATOCRIT 23.9 % (42.0-52.0); HEMOGLOBIN 7.7 g/dl (13.5-17.5); LYMPH # 0.9 10^3/uL (1.5-5.0); LYMPH % 11.6 % (24.0-44.0); MEAN CORPUSCULAR HEMOGLOBIN 31.8 pg (27.0-33.0); MEAN CORPUSCULAR HGB CONC 32.2 g/dl (32.0-36.5); MEAN CORPUSCULAR VOLUME 98.8 fl (80.0-96.0); MONO # 0.5 10^3/uL (0.0-0.8); MONO % 6.4 % (2.0-8.0); NEUTROPHILS # 5.7 10^3/uL (1.5-8.5); NEUTROPHILS % 76.1 % (36.0-66.0); PLATELET COUNT, AUTOMATED 126 10^3/uL (150-450); RED BLOOD COUNT 2.42 10^6/uL (4.30-6.10); WHITE BLOOD COUNT 7.5 10^3/uL (4.0-10.0)
[2021-08-08 05:48] LABS: ALBUMIN 2.1 GM/DL (3.2-5.2); BILIRUBIN,TOTAL 0.3 MG/DL (0.2-1.0); CALCIUM LEVEL 8.4 MG/DL (8.8-10.2); CREATININE FOR GFR 6.23 MG/DL (0.70-1.30); GLOMERULAR FILTRATION RATE 9.3 (>35); MAGNESIUM LEVEL 2.2 MG/DL (1.8-2.4); POTASSIUM SERUM 4.2 MEQ/L (3.5-5.1)
[2021-08-08] MEDS ORDERED: SODIUM CHLORIDE 0.9% 1000ML IV PRN (07:00)
[2021-08-08 08:00] VITALS: BP 128/60
[2021-08-08 12:56] VITALS: BP 120/56
[2021-08-08] MEDS: ASPIRIN 81MG ENTERIC TABLET PO SCH (13:08)
[2021-08-08] MEDS: ATORVASTATIN 20 MG TAB PO SCH (13:08)
[2021-08-08 16:00] VITALS: BP 123/58
[2021-08-11] MEDS ORDERED: DARBEPOETIN 100 MCG/0.5 ML *DIALYSIS* SYRINGE (J0882) IV SCH (09:00)
== END 2021-08-08 17:15 | DRG 871 ==
LOC: M ED 10:55 → EDBD 10:55 → M ED INP 13:57 → ENRESERV 14:40 → M PCU 15:52
PROVIDERS: ADMIT Internal Medicine Nephrology; ATTEND Internal Medicine Nephrology
PROC: 06HM33Z Insertion of Infusion Device into Right Femoral Vein, Percutaneous Approach (ICD-10-PCS; principal; 2021-07-31)
PROC: 5A1D90Z Performance of Urinary Filtration, Continuous, Greater than 18 hours Per Day (ICD-10-PCS; 2021-07-31)
PROC: 30233N1 Transfusion of Nonautologous Red Blood Cells into Peripheral Vein, Percutaneous Approach (ICD-10-PCS; 2021-08-02)
PROC: 0JH63XZ Insertion of Tunneled Vascular Access Device into Chest Subcutaneous Tissue and Fascia, Percutaneous Approach (ICD-10-PCS; 2021-08-07)
PROC: 02H633Z Insertion of Infusion Device into Right Atrium, Percutaneous Approach (ICD-10-PCS; 2021-08-07)
DX: A41.9 Sepsis, unspecified organism (principal); N18.6 End stage renal disease; G93.41 Metabolic encephalopathy; N17.9 Acute kidney failure, unspecified; E87.2 Acidosis; I13.2 Hypertensive heart and chronic kidney disease with heart failure and with stage 5 chronic kidney disease, or end stage renal disease; E87.0 Hyperosmolality and hypernatremia; E87.5 Hyperkalemia; I95.9 Hypotension, unspecified; R68.0 Hypothermia, not associated with low environmental temperature; I25.10 Atherosclerotic heart disease of native coronary artery without angina pectoris; N18.9 Chronic kidney disease, unspecified; N25.0 Renal osteodystrophy; I50.9 Heart failure, unspecified; R19.7 Diarrhea, unspecified; E78.00 Pure hypercholesterolemia, unspecified; D63.1 Anemia in chronic kidney disease; R00.1 Bradycardia, unspecified; Z98.41 Cataract extraction status, right eye; Z98.42 Cataract extraction status, left eye; Z98.61 Coronary angioplasty status; Z79.82 Long term (current) use of aspirin; Z79.899 Other long term (current) drug therapy; Z99.2 Dependence on renal dialysis

== ENCOUNTER 2021-08-08 16:11 | Inpatient (IN) | payer MEDICARE, BC, OTHER ==
[~2021-08-08] VITALS: Ht 185.4 cm; Wt 69.1 kg
[2021-08-08] MEDS: PANTOPRAZOLE 40MG TAB (PROTONIX) PO SCH (09:00)
[~2021-08-08 16:11] MED LIST changes: +ASPI81TA26 PO; +CINA30TA5 PO; +COMMENTS; +EPOE2000 SC; +FURO20TA2 PO; +SODI650T PO
[2021-08-08] MEDS ORDERED: ACETAMINOPHEN TAB 650MG DOSE (2X325MG) PO PRN (16:15)
[2021-08-08 17:15] VITALS: BP 122/60
[2021-08-08] MEDS ORDERED: HOME MED LIST COMPLETE! XX SCH (18:00)
[2021-08-08] MEDS: SENNA 8.6 MG TAB (SENOKOT) PO SCH (19:55)
[2021-08-08] MEDS: DOCUSATE SODIUM 100MG CAPSULE PO SCH (19:55)
[2021-08-08 20:00] VITALS: BP 123/59
[2021-08-08] MEDS: REMEDY PHYTOPLEX Z-GUARD PASTE 113GM TUBE (FROM STOREROOM PRODUCT) TOP SCH (21:00)
[2021-08-08] MEDS: HEPARIN SOD (PORCINE) 5000UNITS/ML 1ML VIAL/SYRINGE SC SCH (21:30)
[2021-08-09 06:00] VITALS: BP 124/79
[2021-08-09 06:13] LABS: BASO % 0.5 % (0.0-1.0); EOS # 0.3 10^3/uL (0.0-0.5); EOS % 5.2 % (0.0-3.0); HEMATOCRIT 25.7 % (42.0-52.0); HEMOGLOBIN 8.3 g/dl (13.5-17.5); LYMPH # 1.4 10^3/uL (1.5-5.0); LYMPH % 23.4 % (24.0-44.0); MEAN CORPUSCULAR HEMOGLOBIN 31.6 pg (27.0-33.0); MEAN CORPUSCULAR HGB CONC 32.3 g/dl (32.0-36.5); MEAN CORPUSCULAR VOLUME 97.7 fl (80.0-96.0); MONO # 0.5 10^3/uL (0.0-0.8); MONO % 8.1 % (2.0-8.0); NEUTROPHILS # 3.6 10^3/uL (1.5-8.5); NEUTROPHILS % 62.3 % (36.0-66.0); PLATELET COUNT, AUTOMATED 166 10^3/uL (150-450); RED BLOOD COUNT 2.63 10^6/uL (4.30-6.10); WHITE BLOOD COUNT 5.8 10^3/uL (4.0-10.0)
[2021-08-09 06:45] LABS: ALBUMIN 2.4 GM/DL (3.2-5.2); BILIRUBIN,TOTAL 0.5 MG/DL (0.2-1.0); CALCIUM LEVEL 8.6 MG/DL (8.8-10.2); CREATININE FOR GFR 4.14 MG/DL (0.70-1.30); GLOMERULAR FILTRATION RATE 14.9 (>35); POTASSIUM SERUM 3.4 MEQ/L (3.5-5.1); TOTAL PROTEIN 5.7 GM/DL (6.4-8.2)
[2021-08-09] MEDS: ATORVASTATIN 20 MG TAB PO SCH (08:08)
[2021-08-09] MEDS: PANTOPRAZOLE 40MG TAB (PROTONIX) PO SCH (08:08)
[2021-08-09] MEDS: ASPIRIN 81MG ENTERIC TABLET PO SCH (08:08)
[2021-08-09] MEDS: HEPARIN SOD (PORCINE) 5000UNITS/ML 1ML VIAL/SYRINGE SC SCH ×2 (08:09→20:53)
[2021-08-09] MEDS: DOCUSATE SODIUM 100MG CAPSULE PO SCH ×2 (08:09→20:54)
[2021-08-09] MEDS: REMEDY PHYTOPLEX Z-GUARD PASTE 113GM TUBE (FROM STOREROOM PRODUCT) TOP SCH ×3 (08:09→20:54)
[2021-08-09] MEDS ORDERED: ATORVASTATIN 20 MG TAB PO SCH (09:00)
[2021-08-09] MEDS ORDERED: POTASSIUM CHLORIDE 10MEQ SR TABLET PO ONE ×2 (10:25→11:25)
[2021-08-09 14:00] VITALS: BP 129/60
[2021-08-09 20:00] VITALS: BP 148/71
[2021-08-09] MEDS: SENNA 8.6 MG TAB (SENOKOT) PO SCH (20:54)
[2021-08-10 05:33] VITALS: BP 137/65
[2021-08-10] MEDS ORDERED: SODIUM CHLORIDE 0.9% 1000ML IV PRN (08:00)
[2021-08-10] MEDS ORDERED: DARBEPOETIN 100 MCG/0.5 ML *DIALYSIS* SYRINGE (J0882) IV SCH (08:00)
[2021-08-10] MEDS ORDERED: ESCITALOPRAM OXALATE 5MG TABLET (LEXAPRO) PO SCH (09:00)
[2021-08-10] MEDS: DOCUSATE SODIUM 100MG CAPSULE PO SCH (09:00)
[2021-08-10 09:09] LABS: CALCIUM LEVEL 8.9 MG/DL (8.8-10.2); CREATININE FOR GFR 5.74 MG/DL (0.70-1.30); GLOMERULAR FILTRATION RATE 10.2 (>35); POTASSIUM SERUM 4.2 MEQ/L (3.5-5.1)
[2021-08-10] MEDS: ASPIRIN 81MG ENTERIC TABLET PO SCH (09:23)
[2021-08-10] MEDS: PANTOPRAZOLE 40MG TAB (PROTONIX) PO SCH (09:24)
[2021-08-10] MEDS: HEPARIN SOD (PORCINE) 5000UNITS/ML 1ML VIAL/SYRINGE SC SCH ×2 (09:24→21:40)
[2021-08-10] MEDS: ATORVASTATIN 20 MG TAB PO SCH (09:24)
[2021-08-10] MEDS: REMEDY PHYTOPLEX Z-GUARD PASTE 113GM TUBE (FROM STOREROOM PRODUCT) TOP SCH ×3 (09:24→21:41)
[2021-08-10] MEDS: CARBAMIDE PEROXIDE 6.5% OTIC SOLN 15ML AU SCH ×2 (12:49→21:40)
[2021-08-10 16:28] VITALS: BP 110/67
[2021-08-10 20:43] VITALS: BP 124/59
[2021-08-10] MEDS: MIRTAZAPINE 7.5MG PER 1/2 TABLET PO SCH (21:40)
[2021-08-11 05:50] VITALS: BP 149/68
[2021-08-11] MEDS: ATORVASTATIN 20 MG TAB PO SCH (09:50)
[2021-08-11] MEDS: ASPIRIN 81MG ENTERIC TABLET PO SCH (09:50)
[2021-08-11] MEDS: CARBAMIDE PEROXIDE 6.5% OTIC SOLN 15ML AU SCH ×2 (09:52→20:44)
[2021-08-11] MEDS: HEPARIN SOD (PORCINE) 5000UNITS/ML 1ML VIAL/SYRINGE SC SCH (09:52)
[2021-08-11] MEDS: REMEDY PHYTOPLEX Z-GUARD PASTE 113GM TUBE (FROM STOREROOM PRODUCT) TOP SCH ×3 (09:57→20:45)
[2021-08-11 13:27] LABS: BASO % 0.8 % (0.0-1.0); EOS # 0.2 10^3/uL (0.0-0.5); EOS % 3.5 % (0.0-3.0); HEMATOCRIT 25.9 % (42.0-52.0); HEMOGLOBIN 8.4 g/dl (13.5-17.5); LYMPH # 0.7 10^3/uL (1.5-5.0); LYMPH % 14.5 % (24.0-44.0); MEAN CORPUSCULAR HEMOGLOBIN 32.4 pg (27.0-33.0); MEAN CORPUSCULAR HGB CONC 32.4 g/dl (32.0-36.5); MONO # 0.5 10^3/uL (0.0-0.8); NEUTROPHILS # 3.7 10^3/uL (1.5-8.5); NEUTROPHILS % 71.8 % (36.0-66.0); PLATELET COUNT, AUTOMATED 224 10^3/uL (150-450); RED BLOOD COUNT 2.59 10^6/uL (4.30-6.10); WHITE BLOOD COUNT 5.1 10^3/uL (4.0-10.0)
[2021-08-11 14:00] VITALS: BP 114/68
[2021-08-11 14:23] LABS: CALCIUM LEVEL 9.1 MG/DL (8.8-10.2); CREATININE FOR GFR 4.49 MG/DL (0.70-1.30); GLOMERULAR FILTRATION RATE 13.5 (>35)
[2021-08-11] MEDS: FERROUS SULFATE 325MG TAB PO SCH ×2 (15:22→20:44)
[2021-08-11] MEDS: APIXABAN 5 MG TAB (ELIQUIS) PO SCH (17:44)
[2021-08-11] MEDS ORDERED: ISOVUE-370 76% 100ML VIAL As Ordered ONE (18:38)
[2021-08-11 20:34] VITALS: BP 129/83
[2021-08-11] MEDS: MIRTAZAPINE 7.5MG PER 1/2 TABLET PO SCH (20:44)
[2021-08-12 00:56] VITALS: BP 133/70
[2021-08-12 04:58] VITALS: BP 144/68
[2021-08-12] MEDS ORDERED: SODIUM CHLORIDE 0.9% 1000ML IV PRN (07:15)
[2021-08-12] MEDS: REMEDY PHYTOPLEX Z-GUARD PASTE 113GM TUBE (FROM STOREROOM PRODUCT) TOP SCH ×3 (09:00→20:20)
[2021-08-12 09:16] LABS: BASO % 1.1 % (0.0-1.0); EOS # 0.2 10^3/uL (0.0-0.5); EOS % 5.9 % (0.0-3.0); HEMATOCRIT 23.5 % (42.0-52.0); HEMOGLOBIN 7.7 g/dl (13.5-17.5); LYMPH % 25.7 % (24.0-44.0); MEAN CORPUSCULAR HEMOGLOBIN 32.5 pg (27.0-33.0); MEAN CORPUSCULAR HGB CONC 32.8 g/dl (32.0-36.5); MEAN CORPUSCULAR VOLUME 99.2 fl (80.0-96.0); MONO # 0.4 10^3/uL (0.0-0.8); MONO % 9.4 % (2.0-8.0); NEUTROPHILS # 2.1 10^3/uL (1.5-8.5); NEUTROPHILS % 57.1 % (36.0-66.0); PLATELET COUNT, AUTOMATED 230 10^3/uL (150-450); RED BLOOD COUNT 2.37 10^6/uL (4.30-6.10); WHITE BLOOD COUNT 3.7 10^3/uL (4.0-10.0)
[2021-08-12 09:36] LABS: ALBUMIN 2.4 GM/DL (3.2-5.2); BILIRUBIN,TOTAL 0.3 MG/DL (0.2-1.0); CALCIUM LEVEL 8.9 MG/DL (8.8-10.2); CREATININE FOR GFR 5.41 MG/DL (0.70-1.30); GLOMERULAR FILTRATION RATE 10.9 (>35); POTASSIUM SERUM 3.8 MEQ/L (3.5-5.1); TOTAL PROTEIN 5.6 GM/DL (6.4-8.2)
[2021-08-12] MEDS: FERROUS SULFATE 325MG TAB PO SCH ×2 (12:50→20:20)
[2021-08-12] MEDS: APIXABAN 5 MG TAB (ELIQUIS) PO SCH ×2 (12:50→20:20)
[2021-08-12] MEDS: ASPIRIN 81MG ENTERIC TABLET PO SCH (12:50)
[2021-08-12] MEDS: ATORVASTATIN 20 MG TAB PO SCH (12:51)
[2021-08-12] MEDS: CARBAMIDE PEROXIDE 6.5% OTIC SOLN 15ML AU SCH ×2 (12:54→20:20)
[2021-08-12 14:00] VITALS: BP 125/58
[2021-08-12 20:00] VITALS: BP 96/54
[2021-08-12] MEDS: MIRTAZAPINE 7.5MG PER 1/2 TABLET PO SCH (20:20)
[2021-08-13] VITALS: BP 111/57
[2021-08-13 06:00] VITALS: BP 118/58
[2021-08-13] MEDS: PANTOPRAZOLE 40MG TAB (PROTONIX) PO SCH ×2 (09:14→20:49)
[2021-08-13] MEDS: APIXABAN 5 MG TAB (ELIQUIS) PO SCH ×2 (09:14→20:49)
[2021-08-13] MEDS: CARBAMIDE PEROXIDE 6.5% OTIC SOLN 15ML AU SCH ×2 (09:14→20:50)
[2021-08-13] MEDS: ATORVASTATIN 20 MG TAB PO SCH (09:14)
[2021-08-13] MEDS: ASPIRIN 81MG ENTERIC TABLET PO SCH (09:14)
[2021-08-13] MEDS: FERROUS SULFATE 325MG TAB PO SCH ×2 (09:14→20:49)
[2021-08-13] MEDS: REMEDY PHYTOPLEX Z-GUARD PASTE 113GM TUBE (FROM STOREROOM PRODUCT) TOP SCH ×3 (09:14→20:50)
[2021-08-13 09:41] LABS: BASO # 0.1 10^3/uL (0.0-0.2); BASO % 1.8 % (0.0-1.0); EOS # 0.2 10^3/uL (0.0-0.5); EOS % 4.4 % (0.0-3.0); HEMATOCRIT 27.3 % (42.0-52.0); HEMOGLOBIN 8.5 g/dl (13.5-17.5); LYMPH # 1.1 10^3/uL (1.5-5.0); LYMPH % 24.5 % (24.0-44.0); MEAN CORPUSCULAR HEMOGLOBIN 31.7 pg (27.0-33.0); MEAN CORPUSCULAR HGB CONC 31.1 g/dl (32.0-36.5); MEAN CORPUSCULAR VOLUME 101.9 fl (80.0-96.0); MONO # 0.4 10^3/uL (0.0-0.8); MONO % 9.2 % (2.0-8.0); NEUTROPHILS # 2.7 10^3/uL (1.5-8.5); NEUTROPHILS % 59.7 % (36.0-66.0); PLATELET COUNT, AUTOMATED 263 10^3/uL (150-450); RED BLOOD COUNT 2.68 10^6/uL (4.30-6.10); WHITE BLOOD COUNT 4.6 10^3/uL (4.0-10.0)
[2021-08-13] MEDS: SUCRALFATE 1 GM TAB PO SCH ×3 (12:19→20:51)
[2021-08-13 14:00] VITALS: BP 120/66
[2021-08-13 20:00] VITALS: BP 125/58
[2021-08-13] MEDS: MIRTAZAPINE 7.5MG PER 1/2 TABLET PO SCH (20:49)
[2021-08-14 06:00] VITALS: BP 131/61
[2021-08-14] MEDS: FERROUS SULFATE 325MG TAB PO SCH ×2 (07:30→20:35)
[2021-08-14] MEDS: ATORVASTATIN 20 MG TAB PO SCH (07:30)
[2021-08-14] MEDS: APIXABAN 5 MG TAB (ELIQUIS) PO SCH ×2 (07:31→20:35)
[2021-08-14] MEDS: SUCRALFATE 1 GM TAB PO SCH ×4 (07:31→20:35)
[2021-08-14] MEDS: PANTOPRAZOLE 40MG TAB (PROTONIX) PO SCH ×2 (07:31→20:35)
[2021-08-14] MEDS: REMEDY PHYTOPLEX Z-GUARD PASTE 113GM TUBE (FROM STOREROOM PRODUCT) TOP SCH ×3 (07:31→20:36)
[2021-08-14] MEDS: ASPIRIN 81MG ENTERIC TABLET PO SCH (07:31)
[2021-08-14 10:34] LABS: BASO # 0.1 10^3/uL (0.0-0.2); BASO % 1.4 % (0.0-1.0); EOS # 0.2 10^3/uL (0.0-0.5); EOS % 5.3 % (0.0-3.0); HEMATOCRIT 25.8 % (42.0-52.0); LYMPH # 1.1 10^3/uL (1.5-5.0); LYMPH % 30.1 % (24.0-44.0); MEAN CORPUSCULAR HEMOGLOBIN 32.1 pg (27.0-33.0); MEAN CORPUSCULAR VOLUME 103.6 fl (80.0-96.0); MONO # 0.4 10^3/uL (0.0-0.8); MONO % 10.1 % (2.0-8.0); NEUTROPHILS # 1.9 10^3/uL (1.5-8.5); NEUTROPHILS % 52.5 % (36.0-66.0); PLATELET COUNT, AUTOMATED 293 10^3/uL (150-450); RED BLOOD COUNT 2.49 10^6/uL (4.30-6.10); WHITE BLOOD COUNT 3.6 10^3/uL (4.0-10.0)
[2021-08-14 10:58] LABS: CALCIUM LEVEL 9.1 MG/DL (8.8-10.2); CREATININE FOR GFR 5.67 MG/DL (0.70-1.30); GLOMERULAR FILTRATION RATE 10.3 (>35); POTASSIUM SERUM 3.8 MEQ/L (3.5-5.1)
[2021-08-14] MEDS ORDERED: DARBEPOETIN 100 MCG/0.5 ML *DIALYSIS* SYRINGE (J0882) IV SCH (12:10)
[2021-08-14 14:00] VITALS: BP 133/81
[2021-08-14 20:08] VITALS: BP 121/58
[2021-08-14] MEDS: MIRTAZAPINE 7.5MG PER 1/2 TABLET PO SCH (20:35)
[2021-08-15 05:37] VITALS: BP 162/77
[2021-08-15] MEDS: SUCRALFATE 1 GM TAB PO SCH ×4 (07:43→20:03)
[2021-08-15] MEDS: PANTOPRAZOLE 40MG TAB (PROTONIX) PO SCH ×2 (07:43→20:03)
[2021-08-15] MEDS: FERROUS SULFATE 325MG TAB PO SCH ×2 (07:44→20:03)
[2021-08-15] MEDS: ASPIRIN 81MG ENTERIC TABLET PO SCH (07:44)
[2021-08-15] MEDS: ATORVASTATIN 20 MG TAB PO SCH (07:44)
[2021-08-15] MEDS: APIXABAN 5 MG TAB (ELIQUIS) PO SCH ×2 (07:44→20:03)
[2021-08-15] MEDS: REMEDY PHYTOPLEX Z-GUARD PASTE 113GM TUBE (FROM STOREROOM PRODUCT) TOP SCH ×3 (07:45→20:03)
[2021-08-15] MEDS ORDERED: SODIUM CHLORIDE 0.9% 1000ML IV PRN (07:55)
[2021-08-15] MEDS ORDERED: DARBEPOETIN 200MCG/0.4ML *DIALYSIS* SYRINGE (J0882 PER 1MCG) IV SCH (11:25)
[2021-08-15] MEDS: IRON SUCROSE 100MG 5ML VIAL (J1756 PER 1MG) IV SCH (12:40)
[2021-08-15 16:30] VITALS: BP 151/70
[2021-08-15 20:00] VITALS: BP 106/56
[2021-08-15] MEDS: MIRTAZAPINE 7.5MG PER 1/2 TABLET PO SCH (20:03)
[2021-08-16 06:13] VITALS: BP 131/69
[2021-08-16] MEDS: ATORVASTATIN 20 MG TAB PO SCH (08:57)
[2021-08-16] MEDS: FERROUS SULFATE 325MG TAB PO SCH ×2 (08:57→20:55)
[2021-08-16] MEDS: ASPIRIN 81MG ENTERIC TABLET PO SCH (08:57)
[2021-08-16] MEDS: PANTOPRAZOLE 40MG TAB (PROTONIX) PO SCH ×2 (08:57→20:55)
[2021-08-16] MEDS: SUCRALFATE 1 GM TAB PO SCH ×4 (08:57→20:56)
[2021-08-16] MEDS: APIXABAN 5 MG TAB (ELIQUIS) PO SCH ×2 (08:57→20:55)
[2021-08-16] MEDS: REMEDY PHYTOPLEX Z-GUARD PASTE 113GM TUBE (FROM STOREROOM PRODUCT) TOP SCH ×3 (08:58→20:56)
[2021-08-16 14:00] VITALS: BP 122/60
[2021-08-16 19:56] VITALS: BP 148/89
[2021-08-16] MEDS: MIRTAZAPINE 7.5MG PER 1/2 TABLET PO SCH (20:55)
[2021-08-17 06:00] VITALS: BP 126/62
[2021-08-17] MEDS ORDERED: SODIUM CHLORIDE 0.9% 1000ML IV PRN (07:30)
[2021-08-17] MEDS: APIXABAN 5 MG TAB (ELIQUIS) PO SCH ×2 (07:39→20:51)
[2021-08-17] MEDS: ASPIRIN 81MG ENTERIC TABLET PO SCH (07:39)
[2021-08-17] MEDS: SUCRALFATE 1 GM TAB PO SCH ×4 (07:39→20:51)
[2021-08-17] MEDS: ATORVASTATIN 20 MG TAB PO SCH (07:40)
[2021-08-17] MEDS: FERROUS SULFATE 325MG TAB PO SCH ×2 (07:40→20:50)
[2021-08-17] MEDS: PANTOPRAZOLE 40MG TAB (PROTONIX) PO SCH ×2 (07:40→20:51)
[2021-08-17] MEDS: REMEDY PHYTOPLEX Z-GUARD PASTE 113GM TUBE (FROM STOREROOM PRODUCT) TOP SCH ×3 (07:41→20:51)
[2021-08-17 12:04] LABS: HEMATOCRIT 28.4 % (42.0-52.0); HEMOGLOBIN 8.6 g/dl (13.5-17.5); MEAN CORPUSCULAR HEMOGLOBIN 32.1 pg (27.0-33.0); MEAN CORPUSCULAR HGB CONC 30.3 g/dl (32.0-36.5); PLATELET COUNT, AUTOMATED 312 10^3/uL (150-450); RED BLOOD COUNT 2.68 10^6/uL (4.30-6.10); WHITE BLOOD COUNT 3.6 10^3/uL (4.0-10.0)
[2021-08-17 12:38] LABS: ALBUMIN 2.7 GM/DL (3.2-5.2); CALCIUM LEVEL 9.3 MG/DL (8.8-10.2); CREATININE FOR GFR 5.98 MG/DL (0.70-1.30); GLOMERULAR FILTRATION RATE 9.7 (>35); PHOSPHORUS LEVEL 2.6 MG/DL (2.5-4.9); POTASSIUM SERUM 4.5 MEQ/L (3.5-5.1)
[2021-08-17 14:00] VITALS: BP 112/65
[2021-08-17] MEDS: IRON SUCROSE 100MG 5ML VIAL (J1756 PER 1MG) IV SCH (17:42)
[2021-08-17] MEDS: MIRTAZAPINE 7.5MG PER 1/2 TABLET PO SCH (20:50)
[2021-08-17] MEDS: MEMANTINE 5MG TABLET (NAMENDA) PO SCH (20:50)
[2021-08-17 20:51] VITALS: BP 144/67
[2021-08-18 05:05] VITALS: BP 155/74
[2021-08-18 05:56] LABS: BASO # 0.1 10^3/uL (0.0-0.2); BASO % 2.2 % (0.0-1.0); EOS # 0.2 10^3/uL (0.0-0.5); EOS % 6.9 % (0.0-3.0); HEMATOCRIT 25.9 % (42.0-52.0); HEMOGLOBIN 8.2 g/dl (13.5-17.5); LYMPH # 0.9 10^3/uL (1.5-5.0); LYMPH % 39.2 % (24.0-44.0); MEAN CORPUSCULAR HEMOGLOBIN 32.9 pg (27.0-33.0); MEAN CORPUSCULAR HGB CONC 31.7 g/dl (32.0-36.5); MONO # 0.4 10^3/uL (0.0-0.8); MONO % 15.9 % (2.0-8.0); NEUTROPHILS % 34.9 % (36.0-66.0); PLATELET COUNT, AUTOMATED 282 10^3/uL (150-450); RED BLOOD COUNT 2.49 10^6/uL (4.30-6.10); WHITE BLOOD COUNT 2.3 10^3/uL (4.0-10.0)
[2021-08-18 06:23] LABS: CALCIUM LEVEL 9.1 MG/DL (8.8-10.2); CREATININE FOR GFR 3.58 MG/DL (0.70-1.30); GLOMERULAR FILTRATION RATE 17.6 (>35); POTASSIUM SERUM 4.1 MEQ/L (3.5-5.1)
[2021-08-18 06:39] LABS: NEUTROPHILS # 0.8 10^3/uL (1.5-8.5)
[2021-08-18] MEDS: SUCRALFATE 1 GM TAB PO SCH ×4 (07:30→20:20)
[2021-08-18] MEDS: ASPIRIN 81MG ENTERIC TABLET PO SCH (09:11)
[2021-08-18] MEDS: ATORVASTATIN 20 MG TAB PO SCH (09:11)
[2021-08-18] MEDS: MEMANTINE 5MG TABLET (NAMENDA) PO SCH ×2 (09:12→20:21)
[2021-08-18] MEDS: PANTOPRAZOLE 40MG TAB (PROTONIX) PO SCH ×2 (09:12→20:21)
[2021-08-18] MEDS: FERROUS SULFATE 325MG TAB PO SCH ×2 (09:12→20:21)
[2021-08-18] MEDS: APIXABAN 5 MG TAB (ELIQUIS) PO SCH ×2 (09:12→20:21)
[2021-08-18] MEDS: REMEDY PHYTOPLEX Z-GUARD PASTE 113GM TUBE (FROM STOREROOM PRODUCT) TOP SCH ×3 (09:16→20:22)
[2021-08-18 14:00] VITALS: BP 126/60
[2021-08-18 19:31] VITALS: BP 129/68
[2021-08-18] MEDS: MIRTAZAPINE 7.5MG PER 1/2 TABLET PO SCH (20:20)
[2021-08-18] MEDS ORDERED: APIXABAN 5 MG TAB (ELIQUIS) PO SCH (21:00)
[2021-08-19 06:00] VITALS: BP 131/63
[2021-08-19] MEDS: SUCRALFATE 1 GM TAB PO SCH ×4 (07:33→20:22)
[2021-08-19] MEDS: FERROUS SULFATE 325MG TAB PO SCH ×2 (07:34→20:22)
[2021-08-19] MEDS: ASPIRIN 81MG ENTERIC TABLET PO SCH (07:34)
[2021-08-19] MEDS: ATORVASTATIN 20 MG TAB PO SCH (07:34)
[2021-08-19] MEDS: APIXABAN 5 MG TAB (ELIQUIS) PO SCH ×2 (07:34→20:22)
[2021-08-19] MEDS: MEMANTINE 5MG TABLET (NAMENDA) PO SCH ×2 (07:34→20:22)
[2021-08-19] MEDS: PANTOPRAZOLE 40MG TAB (PROTONIX) PO SCH ×2 (07:35→20:22)
[2021-08-19] MEDS: REMEDY PHYTOPLEX Z-GUARD PASTE 113GM TUBE (FROM STOREROOM PRODUCT) TOP SCH ×3 (07:35→20:22)
[2021-08-19] MEDS ORDERED: SODIUM CHLORIDE 0.9% 1000ML IV PRN (08:20)
[2021-08-19] MEDS: IRON SUCROSE 100MG 5ML VIAL (J1756 PER 1MG) IV SCH (09:14)
[2021-08-19 14:00] VITALS: BP 136/65
[2021-08-19 20:00] VITALS: BP 105/59
[2021-08-19] MEDS: MIRTAZAPINE 7.5MG PER 1/2 TABLET PO SCH (20:22)
[2021-08-20 06:00] VITALS: BP 144/72
[2021-08-20] MEDS: FERROUS SULFATE 325MG TAB PO SCH ×2 (07:43→20:13)
[2021-08-20] MEDS: SUCRALFATE 1 GM TAB PO SCH ×4 (07:43→20:13)
[2021-08-20] MEDS: ATORVASTATIN 20 MG TAB PO SCH (07:43)
[2021-08-20] MEDS: APIXABAN 5 MG TAB (ELIQUIS) PO SCH ×2 (07:43→20:13)
[2021-08-20] MEDS: MEMANTINE 5MG TABLET (NAMENDA) PO SCH ×2 (07:43→20:13)
[2021-08-20] MEDS: PANTOPRAZOLE 40MG TAB (PROTONIX) PO SCH ×2 (07:43→20:13)
[2021-08-20] MEDS: REMEDY PHYTOPLEX Z-GUARD PASTE 113GM TUBE (FROM STOREROOM PRODUCT) TOP SCH ×3 (07:43→20:13)
[2021-08-20] MEDS: ASPIRIN 81MG ENTERIC TABLET PO SCH (07:43)
[2021-08-20 14:00] VITALS: BP 128/60
[2021-08-20 19:13] VITALS: BP 121/78
[2021-08-20] MEDS: MIRTAZAPINE 7.5MG PER 1/2 TABLET PO SCH (20:13)
[2021-08-21 04:45] VITALS: BP 149/69
[2021-08-21] MEDS: ATORVASTATIN 20 MG TAB PO SCH (08:18)
[2021-08-21] MEDS: APIXABAN 5 MG TAB (ELIQUIS) PO SCH (08:18)
[2021-08-21] MEDS: SUCRALFATE 1 GM TAB PO SCH ×2 (08:18→12:00)
[2021-08-21] MEDS: FERROUS SULFATE 325MG TAB PO SCH (08:18)
[2021-08-21] MEDS: PANTOPRAZOLE 40MG TAB (PROTONIX) PO SCH (08:18)
[2021-08-21] MEDS: ASPIRIN 81MG ENTERIC TABLET PO SCH (08:18)
[2021-08-21] MEDS: MEMANTINE 5MG TABLET (NAMENDA) PO SCH (08:18)
[2021-08-21] MEDS: REMEDY PHYTOPLEX Z-GUARD PASTE 113GM TUBE (FROM STOREROOM PRODUCT) TOP SCH (08:18)
[2021-08-21] MEDS ORDERED: ASPI81TA26 PO (09:13)
[2021-08-21] MEDS ORDERED: PANT40TA29 PO (09:13)
[2021-08-21] MEDS ORDERED: ATOR80TA59 PO (09:13)
[2021-08-21] MEDS ORDERED: MIRT-62 PO (09:13)
[2021-08-21] MEDS ORDERED: FERR1TAB8 PO (09:13)
[2021-08-21] MEDS ORDERED: SUCR1TA PO (09:13)
[2021-08-21] MEDS ORDERED: ELIQ5TAB PO (09:13)
[2021-08-21] MEDS ORDERED: MEMA1TAB3 PO (09:13)
== END 2021-08-21 13:00 | disposition home health service (06) | DRG 947 ==
LOC: M PM&R 17:00
PROVIDERS: ADMIT Physical Medicine & Rehabilitation; ATTEND Physical Medicine & Rehabilitation
PROC: 5A1D70Z Performance of Urinary Filtration, Intermittent, Less than 6 Hours Per Day (ICD-10-PCS; principal; 2021-08-12)
DX: R53.1 Weakness (principal); N18.6 End stage renal disease; I13.2 Hypertensive heart and chronic kidney disease with heart failure and with stage 5 chronic kidney disease, or end stage renal disease; I82.411 Acute embolism and thrombosis of right femoral vein; E78.5 Hyperlipidemia, unspecified; N25.0 Renal osteodystrophy; D63.1 Anemia in chronic kidney disease; R09.02 Hypoxemia; I50.9 Heart failure, unspecified; G30.9 Alzheimer's disease, unspecified; R19.7 Diarrhea, unspecified; R63.0 Anorexia; F02.80 Dementia in other diseases classified elsewhere, unspecified severity, without behavioral disturbance, psychotic disturbance, mood disturbance, and anxiety; R91.8 Other nonspecific abnormal finding of lung field; E83.89 Other disorders of mineral metabolism; R63.4 Abnormal weight loss; G31.83 Neurocognitive disorder with Lewy bodies; R00.1 Bradycardia, unspecified; Z74.09 Other reduced mobility; Z74.1 Need for assistance with personal care; Z98.41 Cataract extraction status, right eye; Z98.42 Cataract extraction status, left eye; Z90.49 Acquired absence of other specified parts of digestive tract; Z99.2 Dependence on renal dialysis; Z79.82 Long term (current) use of aspirin; Z79.899 Other long term (current) drug therapy; Z88.5 Allergy status to narcotic agent; Z88.8 Allergy status to other drugs, medicaments and biological substances; Z87.891 Personal history of nicotine dependence

== ENCOUNTER → 2021-09-18 | Outpatient (REF) | payer MEDICARE, BC, OTHER ==
[~2021-09-18] MED LIST changes: +ATOR80TA59 PO; +ELIQ5TAB PO; +FERR1TAB8 PO; +MEMA1TAB3 PO; +MIRT-62 PO; +PANT40TA29 PO; +PRED20TA PO; +SUCR1TA PO
[2021-09-18 18:16] LABS: CRYSTALS, BODY FLUID CA PYROPHOSPHATE (NONE SEEN); SOURCE, BODY FLUID RT KNEE; SOURCE, BODY FLUID CRYSTALS RT KNEE; SYNOVIAL FLUID COLOR AMBER (COLORLESS)
[2021-09-18 19:30] LABS: SOURCE, BODY FLUID GLUCOSE RT KNEE
[2021-09-20 09:25] LABS: BODY FLUID RHEUMATOID SCREEN NEGATIVE (NEGATIVE)
[2021-09-20 09:26] LABS: MUCIN CLOT TEST 4+ (4+)
== END ==
LOC: M LAB REF 17:01
PROVIDERS: ATTEND Physician Assistant
DX: M25.461 Effusion, right knee (principal)

== ENCOUNTER → 2021-09-20 | Outpatient (CLI) | payer MEDICARE, BC, OTHER ==
[2021-09-20 13:18] LABS: HEMATOCRIT 28.7 % (42.0-52.0); MEAN CORPUSCULAR HEMOGLOBIN 32.8 pg (27.0-33.0); MEAN CORPUSCULAR HGB CONC 31.4 g/dl (32.0-36.5); MEAN CORPUSCULAR VOLUME 104.7 fl (80.0-96.0); PLATELET COUNT, AUTOMATED 238 10^3/uL (150-450); RED BLOOD COUNT 2.74 10^6/uL (4.30-6.10); WHITE BLOOD COUNT 5.3 10^3/uL (4.0-10.0)
[2021-09-20 13:39] LABS: C REACTIVE PROTEIN QUANTITATIV 9.64 MG/DL (0.00-0.30); URIC ACID 3.4 MG/DL (3.5-7.2)
[2021-09-20 13:53] LABS: ERYTHROCYTE SEDIMENTATION RATE 73 mm/hr (0-20)
== END ==
LOC: M LAB 12:00
PROVIDERS: ATTEND Physician Assistant
DX: M25.461 Effusion, right knee (principal)

== ENCOUNTER 2021-09-21 15:58 | Inpatient (IN) | payer MEDICARE, BC, OTHER ==
[~2021-09-21] VITALS: Ht 185.4 cm; Wt 74.0 kg
[~2021-09-21 15:58] MED LIST changes: -PRED20TA PO
[2021-09-21 17:15] VITALS: BP 94/63
[2021-09-21 17:34] VITALS: BP 136/58
[2021-09-21] MEDS ORDERED: MOM 30ML SUSPENSION UDC PO PRN (17:35)
[2021-09-21] MEDS ORDERED: ACETAMINOPHEN TAB 650MG DOSE (2X325MG) PO PRN (17:35)
[2021-09-21] MEDS ORDERED: LIDOCAINE 1% MDV 20ML VIAL IM ONE (18:10)
[2021-09-21 18:33] LABS: SOURCE, BODY FLUID RT KNEE; SYNOVIAL FLUID COLOR YELLOW (COLORLESS)
[2021-09-21 19:10] LABS: CRYSTALS, BODY FLUID CA PYROPHOSPHATE (NONE SEEN); SOURCE, BODY FLUID CRYSTALS RT KNEE
[2021-09-21] MEDS ORDERED: MEMA1TAB3 PO (19:15)
[2021-09-21] MEDS ORDERED: ATOR80TA59 PO (19:15)
[2021-09-21] MEDS ORDERED: PANT40TA29 PO (19:15)
[2021-09-21] MEDS ORDERED: HOME MED LIST COMPLETE! XX SCH (19:15)
[2021-09-21] MEDS ORDERED: SUCR1TA PO (19:15)
[2021-09-21] MEDS ORDERED: FERR1TAB8 PO (19:15)
[2021-09-21] MEDS ORDERED: MIRT-62 PO (19:15)
[2021-09-21] MEDS ORDERED: ASPI81TA26 PO (19:15)
[2021-09-21] MEDS ORDERED: ELIQ5TAB PO (19:15)
[2021-09-21 19:24] LABS: INR 1.19; PROTHROMBIN TIME 15.5 SECONDS (12.7-14.5)
[2021-09-21 19:31] LABS: ALBUMIN 2.7 GM/DL (3.2-5.2); BILIRUBIN,TOTAL 0.4 MG/DL (0.2-1.0); CALCIUM LEVEL 9.1 MG/DL (8.8-10.2); CREATININE FOR GFR 3.2 MG/DL (0.70-1.30); POTASSIUM SERUM 3.7 MEQ/L (3.5-5.1); TOTAL PROTEIN 5.6 GM/DL (6.4-8.2)
[2021-09-21 19:42] LABS: SOURCE, BODY FLUID URIC ACID RT KNEE; URIC ACID, BODY FLUID 2.9 MG/DL (NOT ESTABLISHED)
[2021-09-21 20:25] LABS: MEAN CORPUSCULAR HEMOGLOBIN 32.5 pg (27.0-33.0); MEAN CORPUSCULAR VOLUME 101.6 fl (80.0-96.0); PLATELET COUNT, AUTOMATED 240 10^3/uL (150-450); RED BLOOD COUNT 2.46 10^6/uL (4.30-6.10); WHITE BLOOD COUNT 4.4 10^3/uL (4.0-10.0)
[2021-09-21 20:29] LABS: SOURCE, BODY FLUID GLUCOSE RT KNEE
[2021-09-21 22:00] VITALS: BP 135/61
[2021-09-22 06:00] VITALS: BP 144/76
[2021-09-22 06:55] LABS: HEMATOCRIT 23.7 % (42.0-52.0); HEMOGLOBIN 7.5 g/dl (13.5-17.5); MEAN CORPUSCULAR HEMOGLOBIN 32.5 pg (27.0-33.0); MEAN CORPUSCULAR HGB CONC 31.6 g/dl (32.0-36.5); MEAN CORPUSCULAR VOLUME 102.6 fl (80.0-96.0); PLATELET COUNT, AUTOMATED 221 10^3/uL (150-450); RED BLOOD COUNT 2.31 10^6/uL (4.30-6.10); WHITE BLOOD COUNT 4.6 10^3/uL (4.0-10.0)
[2021-09-22 07:18] LABS: CALCIUM LEVEL 8.8 MG/DL (8.8-10.2); CREATININE FOR GFR 3.79 MG/DL (0.70-1.30); GLOMERULAR FILTRATION RATE 16.4 (>35); POTASSIUM SERUM 3.9 MEQ/L (3.5-5.1)
[2021-09-22] MEDS: SUCRALFATE 1 GM TAB PO SCH ×3 (07:30→16:59)
[2021-09-22] MEDS ORDERED: PANTOPRAZOLE 40MG TAB (PROTONIX) PO SCH (09:00)
[2021-09-22] MEDS ORDERED: predniSONE 20 MG TAB PO SCH (09:00)
[2021-09-22] MEDS ORDERED: ASPIRIN 81MG ENTERIC TABLET PO SCH (09:00)
[2021-09-22] MEDS ORDERED: ATORVASTATIN 20 MG TAB PO SCH (09:00)
[2021-09-22] MEDS ORDERED: FERROUS SULFATE 325MG TAB PO SCH (09:00)
[2021-09-22] MEDS ORDERED: MEMANTINE 5MG TABLET (NAMENDA) PO SCH (09:00)
[2021-09-22 11:21] VITALS: BP 113/64
[2021-09-22 12:41] LABS: MUCIN CLOT TEST 4+ (4+)
[2021-09-22 14:00] VITALS: BP 126/74
[2021-09-22] MEDS ORDERED: PRED20TA PO (15:27)
[2021-09-22] MEDS ORDERED: MIRTAZAPINE 7.5MG PER 1/2 TABLET PO SCH (21:00)
== END 2021-09-22 17:50 | disposition home health service (06) | DRG 553 ==
LOC: M MS5PR 16:36
PROVIDERS: ADMIT Orthopaedic Surgery; ATTEND Internal Medicine
PROC: 0S9C3ZX Drainage of Right Knee Joint, Percutaneous Approach, Diagnostic (ICD-10-PCS; principal; 2021-09-21)
DX: M11.861 Other specified crystal arthropathies, right knee (principal); N18.6 End stage renal disease; I12.0 Hypertensive chronic kidney disease with stage 5 chronic kidney disease or end stage renal disease; Z99.2 Dependence on renal dialysis; Z86.718 Personal history of other venous thrombosis and embolism; E78.5 Hyperlipidemia, unspecified; D50.9 Iron deficiency anemia, unspecified; D63.1 Anemia in chronic kidney disease; F03.90 Unspecified dementia, unspecified severity, without behavioral disturbance, psychotic disturbance, mood disturbance, and anxiety; M65.861 Other synovitis and tenosynovitis, right lower leg; M17.11 Unilateral primary osteoarthritis, right knee; K21.9 Gastro-esophageal reflux disease without esophagitis; I25.10 Atherosclerotic heart disease of native coronary artery without angina pectoris; M25.461 Effusion, right knee; Z90.49 Acquired absence of other specified parts of digestive tract; Z98.41 Cataract extraction status, right eye; Z98.42 Cataract extraction status, left eye; Z79.01 Long term (current) use of anticoagulants; Z79.82 Long term (current) use of aspirin; Z79.899 Other long term (current) drug therapy; Z88.5 Allergy status to narcotic agent; Z88.8 Allergy status to other drugs, medicaments and biological substances; Z95.5 Presence of coronary angioplasty implant and graft

== ENCOUNTER → 2021-10-11 | Outpatient (REF) | payer MEDICARE, BC, OTHER ==
[~2021-10-11] MED LIST changes: +PRED20TA PO
[2021-10-11 13:59] LABS: SOURCE, BODY FLUID RT KNEE; SYNOVIAL FLUID COLOR AMBER (COLORLESS)
[2021-10-11 14:13] LABS: CRYSTALS, BODY FLUID NONE SEEN (NONE SEEN); SOURCE, BODY FLUID CRYSTALS RT KNEE
[2021-10-11 14:37] LABS: SOURCE, BODY FLUID GLUCOSE RT KNEE
== END ==
LOC: M LAB REF 13:12
PROVIDERS: ATTEND Physician Assistant
DX: M25.461 Effusion, right knee (principal); M17.0 Bilateral primary osteoarthritis of knee

== ENCOUNTER → 2021-11-06 | Outpatient (CLI) | payer MEDICARE, BC, OTHER | LOC: M PLAIMG 11:01 | PROVIDERS: ATTEND Internal Medicine Pulmonary Disease | DX: R91.8 Other nonspecific abnormal finding of lung field (principal) ==

== ENCOUNTER 2021-11-23 13:25 | Emergency (ER) | payer MEDICARE, BC, OTHER ==
[~2021-11-23] VITALS: Ht 185.4 cm; Wt 74.1 kg
[2021-11-23 15:02] LABS: BASO % 0.8 % (0.0-1.0); EOS # 0.1 10^3/uL (0.0-0.5); EOS % 2.3 % (0.0-3.0); HEMATOCRIT 33.5 % (42.0-52.0); HEMOGLOBIN 10.6 g/dl (13.5-17.5); LYMPH # 0.6 10^3/uL (1.5-5.0); LYMPH % 14.4 % (24.0-44.0); MEAN CORPUSCULAR HEMOGLOBIN 32.6 pg (27.0-33.0); MEAN CORPUSCULAR HGB CONC 31.6 g/dl (32.0-36.5); MEAN CORPUSCULAR VOLUME 103.1 fl (80.0-96.0); MONO # 0.4 10^3/uL (0.0-0.8); MONO % 9.7 % (2.0-8.0); NEUTROPHILS # 2.8 10^3/uL (1.5-8.5); NEUTROPHILS % 72.5 % (36.0-66.0); PLATELET COUNT, AUTOMATED 185 10^3/uL (150-450); RED BLOOD COUNT 3.25 10^6/uL (4.30-6.10); WHITE BLOOD COUNT 3.9 10^3/uL (4.0-10.0)
[2021-11-23 15:18] LABS: INR 1.14
[2021-11-23 15:19] LABS: PARTIAL THROMBOPLASTIN TIME 38.3 SECONDS (25.9-37.0)
[2021-11-23 15:39] LABS: CALCIUM LEVEL 8.7 MG/DL (8.8-10.2); CREATININE FOR GFR 2.73 MG/DL (0.70-1.30); POTASSIUM SERUM 3.7 MEQ/L (3.5-5.1); THYROID STIMULATING HORMONE 1.04 uIU/ML (0.358-3.740)
[2021-11-23 16:46] VITALS: BP 179/86
== END 2021-11-23 16:57 | disposition home or self-care (01) ==
LOC: M ED 13:25 → EDBD 13:25 → M ED 16:57
DX: R42 Dizziness and giddiness (principal); S00.01XA Abrasion of scalp, initial encounter; S00.03XA Contusion of scalp, initial encounter; W18.39XA Other fall on same level, initial encounter; Y92.410 Unspecified street and highway as the place of occurrence of the external cause; N18.4 Chronic kidney disease, stage 4 (severe); I25.2 Old myocardial infarction; F33.9 Major depressive disorder, recurrent, unspecified; F41.9 Anxiety disorder, unspecified; Z99.2 Dependence on renal dialysis; Z95.5 Presence of coronary angioplasty implant and graft; Z79.899 Other long term (current) drug therapy; Z79.82 Long term (current) use of aspirin; Z88.5 Allergy status to narcotic agent; Z88.8 Allergy status to other drugs, medicaments and biological substances; Z79.01 Long term (current) use of anticoagulants

== ENCOUNTER → 2022-02-16 | Outpatient (CLI) | payer MEDICARE, BC, OTHER ==
[~2022-02-16] MED LIST changes: +FURO40TA2
== END ==
LOC: M RAD 13:15
PROVIDERS: ATTEND Surgery Vascular Surgery
DX: Z01.818 Encounter for other preprocedural examination (principal); N17.9 Acute kidney failure, unspecified

== ENCOUNTER → 2022-02-27 | Outpatient (CLI) | payer MEDICARE, BC, OTHER | LOC: M LABSMTC 11:36 | PROVIDERS: ATTEND Anesthesiology | DX: Z01.812 Encounter for preprocedural laboratory examination (principal); Z11.52 Encounter for screening for COVID-19 ==

== ENCOUNTER 2022-02-28 09:00 | Observation (INO) | payer MEDICARE, BC, OTHER ==
[2022-02-28] VITALS (8 sets, daily range): BP systolic 117–131; BP diastolic 56–66
[~2022-02-28] VITALS: Ht 177.8 cm; Wt 70.8 kg
[2022-02-28] MEDS ORDERED: D5W/0.2% SODIUM CHLORIDE 1,000 ML IV SCH (09:50)
[2022-02-28] MEDS ORDERED: ceFAZolin SOD 2 GM in IV 1 EA IV ONE (10:00)
[2022-02-28] MEDS ORDERED: fentaNYL 100 MCG/2 ML INJECTION As Ordered ONE (10:03)
[2022-02-28] MEDS ORDERED: LIDOCAINE 1% SDV 30ML VIAL As Ordered ONE (10:21)
[2022-02-28] MEDS ORDERED: HEPARIN SOD (PORCINE) 5000UNITS/ML 1ML VIAL/SYRINGE As Ordered ONE (10:21)
[2022-02-28] MEDS ORDERED: BUPIVACAINE/EPIN 0.5% 30 ML VIAL As Ordered ONE (10:21)
[2022-02-28 10:24] LABS: HEMATOCRIT 36.2 % (42.0-52.0); HEMOGLOBIN 11.5 g/dl (13.5-17.5); MEAN CORPUSCULAR HEMOGLOBIN 31.8 pg (27.0-33.0); MEAN CORPUSCULAR HGB CONC 31.8 g/dl (32.0-36.5); PLATELET COUNT, AUTOMATED 204 10^3/uL (150-450); RED BLOOD COUNT 3.62 10^6/uL (4.30-6.10); WHITE BLOOD COUNT 5.6 10^3/uL (4.0-10.0)
[2022-02-28 10:40] LABS: CALCIUM LEVEL 9.5 MG/DL (8.8-10.2); CREATININE FOR GFR 4.11 MG/DL (0.70-1.30); POTASSIUM SERUM 3.7 MEQ/L (3.5-5.1)
[2022-02-28] MEDS ORDERED: ceFAZolin 2 GM/D5W 50 ML IV BAG (J0690 PER 500MG) As Ordered ONE (11:02)
[2022-02-28] MEDS ORDERED: dexameTHASONE 4 MG/ML 1ML VIAL (J1100 PER 1MG) As Ordered ONE (11:10)
[2022-02-28] MEDS ORDERED: ePHEDrine SULFATE 25 MG/5 ML(5MG/ML) SYRINGE As Ordered ONE (11:10)
[2022-02-28] MEDS ORDERED: propofoL 200 MG/20 ML VIAL As Ordered ONE (11:10)
[2022-02-28] MEDS ORDERED: ONDANSETRON 4MG 2ML VIAL As Ordered ONE (11:10)
[2022-02-28] MEDS ORDERED: PHENYLEPHRINE 10MG/ML 1ML VIAL (J2370 PER 1) As Ordered ONE (11:33)
[2022-02-28] MEDS ORDERED: HYDROMORPHONE HCL 0.5 MG/ 0.5 ML SYRINGE (J1170 PER 1) IV PRN (12:25)
[2022-02-28] MEDS ORDERED: NS 1,000 ML IV SCH (12:25)
[2022-02-28] MEDS ORDERED: ONDANSETRON 4MG 2ML VIAL IV PRN (12:25)
[2022-02-28] MEDS ORDERED: oxyCODONE 5MG TAB PO PRN (12:25)
[2022-02-28] MEDS ORDERED: fentaNYL 100 MCG/2 ML INJECTION IV PRN (12:25)
[2022-02-28] MEDS ORDERED: ACETAMINOPHEN TAB 650MG DOSE (2X325MG) PO PRN (12:30)
[2022-02-28] MEDS ORDERED: ATORVASTATIN 20 MG TAB PO SCH (21:00)
[2022-03-01] VITALS: BP 109/58
[2022-03-01 04:25] VITALS: BP 125/63
[2022-03-01 05:44] VITALS: BP 131/68
[2022-03-01] MEDS ORDERED: SODIUM CHLORIDE 0.9% 1000ML IV PRN (06:00)
[2022-03-01] MEDS ORDERED: ASPIRIN 81MG ENTERIC TABLET PO SCH (06:24)
[2022-03-01] MEDS ORDERED: FUROSEMIDE 20 MG TAB PO SCH (06:25)
[2022-03-02] MEDS ORDERED: APIXABAN 5 MG TAB (ELIQUIS) PO SCH (09:00)
== END 2022-03-01 15:45 | disposition home or self-care (01) ==
LOC: M SDC 09:00 → M MSPAV 13:41
PROVIDERS: ADMIT Surgery Vascular Surgery; ATTEND Surgery Vascular Surgery
DX: N18.6 End stage renal disease (principal); Z99.2 Dependence on renal dialysis; I82.411 Acute embolism and thrombosis of right femoral vein; E78.5 Hyperlipidemia, unspecified; D63.1 Anemia in chronic kidney disease; M17.0 Bilateral primary osteoarthritis of knee; I25.10 Atherosclerotic heart disease of native coronary artery without angina pectoris; I25.2 Old myocardial infarction; Z95.5 Presence of coronary angioplasty implant and graft; F03.90 Unspecified dementia, unspecified severity, without behavioral disturbance, psychotic disturbance, mood disturbance, and anxiety; Z79.899 Other long term (current) drug therapy; Z79.82 Long term (current) use of aspirin; Z79.01 Long term (current) use of anticoagulants; Z88.5 Allergy status to narcotic agent; Z88.8 Allergy status to other drugs, medicaments and biological substances; Z87.891 Personal history of nicotine dependence
CPT/HCPCS: 36415; 36821; 80048; 85027; G0257; G0378; J0690; J1100; J1644; J2370; J2405; J3010

== ENCOUNTER → 2022-08-24 | Outpatient (CLI) | payer MEDICARE, BC, OTHER ==
[~2022-08-24] MED LIST changes: +LIDOCAINE 1% MDV 20ML VIAL As Ordered ONE
[2022-08-24 13:52] VITALS: BP 154/92
== END ==
LOC: M IRPRO 10:49
PROVIDERS: ATTEND Surgery Vascular Surgery
DX: N18.6 End stage renal disease (principal); G56.02 Carpal tunnel syndrome, left upper limb; Z99.2 Dependence on renal dialysis

== ENCOUNTER → 2023-07-10 | Outpatient (CLI) | payer MEDICARE, BC, OTHER ==
[~2023-07-10] MED LIST changes: -LIDOCAINE 1% MDV 20ML VIAL As Ordered ONE; -MIRT-62 PO; +MIRT-88 PO
== END ==
LOC: M PLALAB 10:45
PROVIDERS: ATTEND Internal Medicine Hematology
DX: Z01.818 Encounter for other preprocedural examination (principal); T85.22XA Displacement of intraocular lens, initial encounter; R06.02 Shortness of breath

== ENCOUNTER → 2024-06-03 | Outpatient (CLI) | payer MEDICARE, BC ==
[~2024-06-03] MED LIST changes: -RAMI1CAP24 PO; +RAMI5CAP60 PO
[2024-06-03 15:41] LABS: BASO % 0.6 % (0.0-1.0); EOS # 0.2 10^3/uL (0.0-0.5); EOS % 3.2 % (0.0-3.0); HEMATOCRIT 33.7 % (42.0-52.0); HEMOGLOBIN 10.9 g/dl (13.5-17.5); LYMPH # 1.5 10^3/uL (1.5-5.0); LYMPH % 32.1 % (24.0-44.0); MEAN CORPUSCULAR HGB CONC 32.3 g/dl (32.0-36.5); MONO # 0.4 10^3/uL (0.0-0.8); MONO % 8.5 % (2.0-8.0); NEUTROPHILS # 2.6 10^3/uL (1.5-8.5); NEUTROPHILS % 55.6 % (36.0-66.0); PLATELET COUNT, AUTOMATED 166 10^3/uL (150-450); RED BLOOD COUNT 3.21 10^6/uL (4.30-6.10); WHITE BLOOD COUNT 4.7 10^3/uL (4.0-10.0)
[2024-06-03 16:06] LABS: ALBUMIN 3.9 G/DL (3.2-5.2); BILIRUBIN,TOTAL 0.4 MG/DL (0.3-1.2); CALCIUM LEVEL 9.6 MG/DL (8.3-10.6); CHOLESTEROL RISK RATIO 2.56 (<5); CREATININE FOR GFR 4.93 MG/DL (0.70-1.30); GLOMERULAR FILTRATION RATE 12.1 (>35); HDL CHOLESTEROL 49.5 MG/DL (>40); LDL CHOLESTEROL 61.5 MG/DL (<100); NON-HDL-C 77.5 MG/DL; POTASSIUM SERUM 4.2 MMOL/L (3.5-5.1); PROSTATIC SPECIFIC AG MONITOR 1.89 NG/ML (< 4.00); TOTAL PROTEIN 7.2 G/DL (5.7-8.2)
[2024-06-03 16:07] LABS: FREE T4 0.96 NG/DL (0.89-1.76); THYROID STIMULATING HORMONE 1.75 uIU/ML (0.55-4.78)
[2024-06-03 16:08] LABS: FERRITIN 932.3 NG/ML (10.5-307.3)
[2024-06-03 16:16] LABS: HEMOGLOBIN A1c 4.6 % (4.0-6.0)
== END ==
LOC: M PLALAB 13:58
PROVIDERS: ATTEND Student in an Organized Health Care Education/Training Program
DX: Z13.220 Encounter for screening for lipoid disorders (principal); Z76.89 Persons encountering health services in other specified circumstances; Z13.1 Encounter for screening for diabetes mellitus; Z13.29 Encounter for screening for other suspected endocrine disorder; Z86.39 Personal history of other endocrine, nutritional and metabolic disease; D63.1 Anemia in chronic kidney disease; Z79.899 Other long term (current) drug therapy

== ENCOUNTER 2024-06-18 10:08 | Emergency (ER) | payer MEDICARE, BC ==
[~2024-06-18] VITALS: Ht 185.4 cm; Wt 69.3 kg
[2024-06-18] MEDS ORDERED: methylPREDNISolone 125MG 2ML VIAL IV ONE (13:40)
[2024-06-18] MEDS ORDERED: FAMOTIDINE 20MG/2ML VIAL IVP ONE (13:40)
[2024-06-18] MEDS ORDERED: diphenhydrAMINE 50MG/ML VIAL IV ONE (13:40)
[2024-06-18 13:42] VITALS: BP 164/80; TEMP 96.4; O2SAT 99
== END 2024-06-18 13:59 | disposition home or self-care (01) ==
LOC: EDBD 10:08 → M ED 10:08
DX: S63.501A Unspecified sprain of right wrist, initial encounter (principal); Y92.9 Unspecified place or not applicable; Y93.9 Activity, unspecified; Y99.9 Unspecified external cause status; W00.0XXA Fall on same level due to ice and snow, initial encounter; I25.2 Old myocardial infarction; I10 Essential (primary) hypertension; E78.5 Hyperlipidemia, unspecified; Z88.5 Allergy status to narcotic agent; Z88.8 Allergy status to other drugs, medicaments and biological substances; Z79.01 Long term (current) use of anticoagulants; Z79.1 Long term (current) use of non-steroidal anti-inflammatories (NSAID); Z79.899 Other long term (current) drug therapy

== ENCOUNTER → 2024-07-03 | Outpatient (CLI) | payer MEDICARE, BC | LOC: M PLAIMG 14:14 | DX: S69.91XD Unspecified injury of right wrist, hand and finger(s), subsequent encounter (principal); Y93.9 Activity, unspecified; Y92.9 Unspecified place or not applicable ==

== ENCOUNTER → 2024-07-27 | Outpatient (CLI) | payer MEDICARE, BC | LOC: M PLAIMG 09:14 | PROVIDERS: ATTEND Physician Assistant | DX: S63.91XA Sprain of unspecified part of right wrist and hand, initial encounter (principal); M19.031 Primary osteoarthritis, right wrist; M19.041 Primary osteoarthritis, right hand ==

== ENCOUNTER 2024-08-11 11:46 | Emergency (ER) | payer BC, MEDICARE ==
[~2024-08-11] VITALS: Ht 185.4 cm; Wt 68.2 kg
[2024-08-11 12:02] VITALS: TEMP 97.4
[2024-08-11 13:45] VITALS: BP 174/88; O2SAT 99
== END 2024-08-11 13:50 | disposition home or self-care (01) ==
LOC: M ED 11:46 → EDBD 11:46 → M ED 13:50
DX: S00.03XA Contusion of scalp, initial encounter (principal); Y92.238 Other place in hospital as the place of occurrence of the external cause; Y93.9 Activity, unspecified; Y99.9 Unspecified external cause status; I25.119 Atherosclerotic heart disease of native coronary artery with unspecified angina pectoris; E78.00 Pure hypercholesterolemia, unspecified; I12.9 Hypertensive chronic kidney disease with stage 1 through stage 4 chronic kidney disease, or unspecified chronic kidney disease; Z88.5 Allergy status to narcotic agent; Z88.8 Allergy status to other drugs, medicaments and biological substances; Z79.01 Long term (current) use of anticoagulants; Z79.1 Long term (current) use of non-steroidal anti-inflammatories (NSAID); Z79.899 Other long term (current) drug therapy

== ENCOUNTER 2024-10-26 19:54 | Emergency (ER) | payer MEDICARE, BC ==
[~2024-10-26] VITALS: Ht 188 cm; Wt 72.3 kg
[2024-10-26 22:18] LABS: BASO % 0.8 % (0.0-1.0); EOS # 0.1 10^3/uL (0.0-0.5); EOS % 2.7 % (0.0-3.0); HEMATOCRIT 34.3 % (42.0-52.0); LYMPH # 1.1 10^3/uL (1.5-5.0); LYMPH % 31.3 % (24.0-44.0); MEAN CORPUSCULAR HGB CONC 32.1 g/dl (32.0-36.5); MONO # 0.4 10^3/uL (0.0-0.8); NEUTROPHILS % 54.2 % (36.0-66.0); PLATELET COUNT, AUTOMATED 172 10^3/uL (150-450); RED BLOOD COUNT 3.33 10^6/uL (4.30-6.10); WHITE BLOOD COUNT 3.6 10^3/uL (4.0-10.0)
[2024-10-26 22:40] LABS: INR 0.97; PROTHROMBIN TIME 13.2 SECONDS (12.5-14.5)
[2024-10-26 22:58] LABS: CALCIUM LEVEL 9.1 MG/DL (8.3-10.6); CREATININE FOR GFR 6.09 MG/DL (0.70-1.30); GLOMERULAR FILTRATION RATE 8.5 (>35)
[2024-10-27 08:12] VITALS: BP 150/72; TEMP 97.1; O2SAT 100
== END 2024-10-27 08:05 | disposition home or self-care (01) ==
LOC: M ED 19:54 → EDBD 19:54 → M ED 10-27 08:05
DX: T82.838A Hemorrhage due to vascular prosthetic devices, implants and grafts, initial encounter (principal); N18.6 End stage renal disease; Z88.5 Allergy status to narcotic agent; Z88.8 Allergy status to other drugs, medicaments and biological substances; Z79.1 Long term (current) use of non-steroidal anti-inflammatories (NSAID); Z79.01 Long term (current) use of anticoagulants; Z79.899 Other long term (current) drug therapy

== ENCOUNTER → 2024-11-04 | Outpatient (CLI) | payer MEDICARE, BC ==
[2024-11-04 15:35] LABS: BASO % 0.9 % (0.0-1.0); EOS # 0.1 10^3/uL (0.0-0.5); EOS % 1.9 % (0.0-3.0); HEMATOCRIT 36.3 % (42.0-52.0); HEMOGLOBIN 11.1 g/dl (13.5-17.5); LYMPH % 22.2 % (24.0-44.0); MEAN CORPUSCULAR HGB CONC 30.6 g/dl (32.0-36.5); MEAN CORPUSCULAR VOLUME 104.6 fl (80.0-96.0); MONO # 0.3 10^3/uL (0.0-0.8); MONO % 7.6 % (2.0-8.0); NEUTROPHILS # 2.9 10^3/uL (1.5-8.5); NEUTROPHILS % 67.2 % (36.0-66.0); PLATELET COUNT, AUTOMATED 206 10^3/uL (150-450); RED BLOOD COUNT 3.47 10^6/uL (4.30-6.10); WHITE BLOOD COUNT 4.3 10^3/uL (4.0-10.0)
[2024-11-04 16:02] LABS: PSA SCREENING 1.76 NG/ML (< 4.00)
[2024-11-04 16:04] LABS: ALBUMIN 3.7 G/DL (3.2-5.2); BILIRUBIN,TOTAL 0.3 MG/DL (0.3-1.2); CHOLESTEROL RISK RATIO 3.34 (<5); CREATININE FOR GFR 4.78 MG/DL (0.70-1.30); GLOMERULAR FILTRATION RATE 11.4 (>35); LDL CHOLESTEROL 96.8 MG/DL (<100); PERCENT SATURATION 19.1 % (19.7-50.0); POTASSIUM SERUM 4.8 MMOL/L (3.5-5.1); TOTAL PROTEIN 6.7 G/DL (5.7-8.2)
[2024-11-04 16:06] LABS: FERRITIN 857.5 NG/ML (10.5-307.3)
== END ==
LOC: M PLALAB 12:07
PROVIDERS: ATTEND Student in an Organized Health Care Education/Training Program
DX: I12.9 Hypertensive chronic kidney disease with stage 1 through stage 4 chronic kidney disease, or unspecified chronic kidney disease (principal); D63.1 Anemia in chronic kidney disease; R97.20 Elevated prostate specific antigen [PSA]